=== PATIENT | male | born 1935 | race Caucasian/White ===

== ENCOUNTER 2019-07-24 12:49 | Inpatient (IN) ==
--- NOTE | 2019-07-24 13:05 | Emergency Department Note ---
History of Present Illness General Chief complaint: Dizziness Stated complaint: DIZZY/ABD PAIN/COUGH Time Seen by Provider: 07/24/19 12:50 Source: patient, RN notes reviewed and old records reviewed Mode of arrival: ambulatory History of Present Illness Provider complaint: dizziness Onset (ago): day(s) 3 Location: head Radiation: non-radiation Severity: moderate Current Pain Intensity: 0 Associated symptoms: + denies other symptoms This is an 84-year-old male who presents the emergency department complaining of dizziness. The patient reports a history of walking and becoming dizzy and needing to sit down. The patient also reports he is on a beta-gladys which she has been taking for the past 2 days however he does not take religiously. He has also been taking Flomax. He reports that the dizziness does not get worse with movement of his head. He denies any other symptoms including nausea vomiting. Home Medications Home Medications Medication Instructions Recorded Confirmed Type acetaminophen [Tylenol Extra 1,000 mg PO QAM 07/24/19 07/24/19 History Strength] amlodipine 5 mg PO DAILY 07/24/19 07/24/19 History finasteride 5 mg PO QPM 07/24/19 07/24/19 History tadalafil 5 mg PO QAM 07/24/19 07/24/19 History tamsulosin 0.4 mg PO HS 07/24/19 07/24/19 History Allergies Allergy/AdvReac Type Severity Reaction Status Date / Time No Known Allergies Allergy . Unverified 07/24/19 14:42 Past Med/Surg History Medical History BPH (benign prostatic hyperplasia) Dyslipidemia HTN (hypertension) Surgical History H/O vasectomy History of cataract surgery Hx of tonsillectomy Family History Mother Stroke Social History Preferred Language: [place] Feels Safe at Home: Yes Smoking Status: Former smoker Hx Alcohol Use: Yes (1 glass wine a day) Hx Substance Use: No Review of Systems A total of 10 systems reviewed and were otherwise negative Physical Exam Vital Signs Vital Signs - 24 hr 07/24/19 12:52 07/24/19 12:53 07/24/19 12:55 Temperature 36.8 C Temperature Source Oral Pulse Rate - Lying Pulse Rate - Sitting Pulse Rate - Standing Pulse Rate 63 59 L Pulse Rate from SpO2 Sensor 61 Pulse Rhythm Irregular Pulse Strength Normal Respiratory Rate 21 20 Respiratory Effort / Characteristics Non-Labored Spontaneous Respiratory Depth Normal Respiratory Pattern Regular Blood Pressure - Lying Blood Pressure - Sitting Blood Pressure- Standing Blood Pressure 169/102 H 169/102 H Blood Pressure Mean 134 124 Blood Pressure Position Sitting Pulse Oximetry 99 100 99 Oxygen Delivery Method Room Air Room Air Room Air Sepsis Recent Fever Within 48 Hours No Sepsis New/Unexplained Change in Mental Status No Sepsis Action Taken by Nursing No Action Required 07/24/19 12:59 07/24/19 13:00 07/24/19 13:02 Temperature Temperature Source Pulse Rate - Lying Pulse Rate - Sitting Pulse Rate - Standing Pulse Rate 67 55 L 55 L Pulse Rate from SpO2 Sensor 68 57 L 54 L Pulse Rhythm Pulse Strength Respiratory Rate 17 20 14 Respiratory Effort / Characteristics Respiratory Depth Respiratory Pattern Blood Pressure - Lying Blood Pressure - Sitting Blood Pressure- Standing Blood Pressure 140/61 Blood Pressure Mean 72 Blood Pressure Position Pulse Oximetry 99 99 99 Oxygen Delivery Method Room Air Room Air Room Air Sepsis Recent Fever Within 48 Hours Sepsis New/Unexplained Change in Mental Status Sepsis Action Taken by Nursing 07/24/19 13:03 07/24/19 13:04 07/24/19 13:56 Temperature Temperature Source Pulse Rate - Lying 53 L Pulse Rate - Sitting 54 L Pulse Rate - Standing 66 Pulse Rate 56 L 59 L 94 H Pulse Rate from SpO2 Sensor 56 L 57 L Pulse Rhythm Pulse Strength Respiratory Rate 21 17 25 H Respiratory Effort / Characteristics Respiratory Depth Respiratory Pattern Blood Pressure - Lying 140/61 Blood Pressure - Sitting 136/69 Blood Pressure- Standing 130/62 Blood Pressure 136/69 130/62 Blood Pressure Mean 83 80 Blood Pressure Position Pulse Oximetry 97 98 Oxygen Delivery Method Room Air Room Air Sepsis Recent Fever Within 48 Hours Sepsis New/Unexplained Change in Mental Status Sepsis Action Taken by Nursing 07/24/19 14:00 07/24/19 14:19 07/24/19 14:30 Temperature Temperature Source Pulse Rate - Lying Pulse Rate - Sitting Pulse Rate - Standing Pulse Rate 59 L 62 66 Pulse Rate from SpO2 Sensor 56 L 56 L 62 Pulse Rhythm Pulse Strength Respiratory Rate 19 14 14 Respiratory Effort / Characteristics Respiratory Depth Respiratory Pattern Blood Pressure - Lying Blood Pressure - Sitting Blood Pressure- Standing Blood Pressure 167/78 H 169/98 H Blood Pressure Mean 125 110 Blood Pressure Position Pulse Oximetry 98 98 99 Oxygen Delivery Method Room Air Room Air Room Air Sepsis Recent Fever Within 48 Hours Sepsis New/Unexplained Change in Mental Status Sepsis Action Taken by Nursing 07/24/19 15:00 07/24/19 15:31 Temperature Temperature Source Pulse Rate - Lying Pulse Rate - Sitting Pulse Rate - Standing Pulse Rate 55 L 58 L Pulse Rate from SpO2 Sensor 56 L 59 L Pulse Rhythm Pulse Strength Respiratory Rate 13 20 Respiratory Effort / Characteristics Respiratory Depth Respiratory Pattern Blood Pressure - Lying Blood Pressure - Sitting Blood Pressure- Standing Blood Pressure 189/86 H 175/98 H Blood Pressure Mean 105 123 Blood Pressure Position Pulse Oximetry 98 98 Oxygen Delivery Method Room Air Room Air Sepsis Recent Fever Within 48 Hours Sepsis New/Unexplained Change in Mental Status Sepsis Action Taken by Nursing GENERAL: Patient is a healthy-appearing well-nourished male HEAD: Normocephalic atraumatic EYES: Ocular movements intact pupils equal and react to light OROPHARYNX mucous membranes are moist no exudates present no erythema or edema present NECK: Supple no nuchal rigidity CHEST: Good equal expansion LUNGS: Clear and equal to auscultation CARDIAC: Normal S1 and S2 ABDOMEN: Soft nontender no guarding BACK: No CVA tenderness EXTREMITIES: No pain upon palpation normal muscle strength in all groups no clubbing cyanosis or edema NEURO: Patient is following commands is answering questions appropriately. Alert and oriented x3 Cranial Nerves 2-12 grossly intact Course Administered Medications Ioversol (Optiray 320 125ml) 120 ml IV ONCE PRN PRN Reason: Interaction Checking Stop: 07/28/19 13:45 Last Admin: 07/24/19 13:47 Dose: 120 ml Documented by: [id number] Discontinued Medications Sodium Chloride (Nss 1000ml) 1,000 mls @ 999 mls/hr IV .Q1H1M EVER Stop: 07/24/19 14:15 Last Infusion: 07/24/19 14:17 Dose: 0 mls/hr Documented by: [id number] Admin: 07/24/19 13:16 Dose: 999 mls/hr Documented by: [id number] Medical Decision Making Differential Diagnosis Benign positional vertigo, dehydration, hypovolemia, anemia, tumor, infection, hypoglycemia, electrolyte abnormalities, cardiac sources, intracerebral event, toxicologic, neurologic, as well as other pathologies. Medical Records Attestation: I reviewed the patient's medical records. Home Medications Current Medication List: was personally reviewed by me Laboratory Data Attestation: I reviewed the patient's lab results. Result diagrams: 07/24/19 13:12 07/24/19 13:12 Lab Results 07/24/19 07/24/19 07/24/19 Range/Units 13:12 13:12 13:21 WBC 6.06 (4.8-10.8) K/uL RBC 3.75 L (4.7-6.1) M/uL Hgb 12.1 L (14.0-18.0) g/dL POC Hgb 11.2 L (14.0-18.0) g/dl Hct 35.9 L (42-52) % POC Hct 33 L (42-52) % MCV 95.7 (80-100) fL MCH 32.3 (25-34) pg MCHC 33.7 (32-36) g/dL RDW Std Deviation 46.5 H (36.4-46.3) fL RDW Coeff of Shivani 13.3 (11.5-14.5) % Plt Count 218 (130-400) K/uL MPV 9.9 (7.4-10.4) fL Immature Gran % (Auto) 0.2 % Neut % (Auto) 47.1 % Lymph % (Auto) 38.3 % Woodruff % (Auto) 9.1 % Eos % (Auto) 4.8 % Baso % (Auto) 0.5 % Immature Gran # (Auto) 0.01 (0.00-0.02) K/uL Neut # (Auto) 2.86 (1.4-6.5) K/uL Lymph # (Auto) 2.32 (1.2-3.4) K/uL [place]ruff # (Auto) 0.55 (0.11-0.59) K/uL Eos # (Auto) 0.29 (0-0.5) K/uL Baso # (Auto) 0.03 (0-0.2) K/uL POC Sodium 139 (135-144) mmol/L Sodium 139 (136-145) mmol/L POC Potassium 3.8 (3.3-5.0) mmol/L Potassium 3.7 (3.5-5.1) mmol/L POC Chloride 102 (101-112) mmol/L Chloride 107 (98-107) mmol/L Carbon Dioxide 27 (21-32) mmol/L POC Total CO2 26 (24-31) mEq/l Anion Gap 5.0 (3-11) POC Anion Gap 16.0 (16-25) mmol/L POC BUN 15 (7-18) mg/dl BUN 16 (7-18) mg/dl Creatinine 0.99 (0.6-1.4) mg/dl POC Creatinine 1.0 (0.6-1.3) mg/dl Est Cr Clr Drug Dosing 60.2 ml/min Est GFR ( Amer) 81.3 Est GFR (Non-Af Amer) 70.1 BUN/Creatinine Ratio 16.0 (10-20) Glucose 104 H (70-99) mg/dl POC Glucose (other) 106 H (70-99) mg/dl Calcium 8.8 (8.5-10.1) mg/dl POC Ioniz Calcium Brie 1.18 (1.12-1.32) mmol/l Total Bilirubin 0.3 (0.2-1) mg/dl AST 13 L (15-37) U/L ALT 17 (12-78) U/L Alkaline Phosphatase 74 (45-117) U/L Total Creatine Kinase 71 (39-308) U/L Troponin I < 0.015 (0-0.045) ng/ml Total Protein 6.4 (6.4-8.2) gm/dl Albumin 3.4 (3.4-5.0) gm/dl Globulin 3.0 (2.5-4.0) gm/dl Albumin/Globulin Ratio 1.1 (0.9-2) TSH 1.660 (0.300-4.500) uIu/ml Urine Color Urine Appearance (Clear) Urine pH (4.5-7.5) Ur Specific [place] (1.000-1.030) Urine Protein (Negative) Urine Glucose (UA) (Negative) Urine Ketones (Negative) Urine Blood (Negative) Urine Nitrite (Negative) Urine Bilirubin (Negative) Urine Urobilinogen (Negative) Ur Leukocyte Esterase (Negative) Urine WBC (Auto) (0-5) /hpf Urine RBC (Auto) (0-4) /hpf U Hyaline Cast (Auto) (0-5) /lpf U Epithel Cells (Auto) (0-5) /lpf Urine Bacteria (Auto) (Negative) 07/24/19 Range/Units 14:30 WBC (4.8-10.8) K/uL RBC (4.7-6.1) M/uL Hgb (14.0-18.0) g/dL POC Hgb (14.0-18.0) g/dl Hct (42-52) % POC Hct (42-52) % MCV (80-100) fL MCH (25-34) pg MCHC (32-36) g/dL RDW Std Deviation (36.4-46.3) fL RDW Coeff of Shivani (11.5-14.5) % Plt Count (130-400) K/uL MPV (7.4-10.4) fL Immature Gran % (Auto) % Neut % (Auto) % Lymph % (Auto) % Woodruff % (Auto) % Eos % (Auto) % Baso % (Auto) % Immature Gran # (Auto) (0.00-0.02) K/uL Neut # (Auto) (1.4-6.5) K/uL Lymph # (Auto) (1.2-3.4) K/uL [place] # (Auto) (0.11-0.59) K/uL Eos # (Auto) (0-0.5) K/uL Baso # (Auto) (0-0.2) K/uL POC Sodium (135-144) mmol/L Sodium (136-145) mmol/L POC Potassium (3.3-5.0) mmol/L Potassium (3.5-5.1) mmol/L POC Chloride (101-112) mmol/L Chloride (98-107) mmol/L Carbon Dioxide (21-32) mmol/L POC Total CO2 (24-31) mEq/l Anion Gap (3-11) POC Anion Gap (16-25) mmol/L POC BUN (7-18) mg/dl BUN (7-18) mg/dl Creatinine (0.6-1.4) mg/dl POC Creatinine (0.6-1.3) mg/dl Est Cr Clr Drug Dosing ml/min Est GFR ( Amer) Est GFR (Non-Af Amer) BUN/Creatinine Ratio (10-20) Glucose (70-99) mg/dl POC Glucose (other) (70-99) mg/dl Calcium (8.5-10.1) mg/dl POC Ioniz Calcium Brie (1.12-1.32) mmol/l Total Bilirubin (0.2-1) mg/dl AST (15-37) U/L ALT (12-78) U/L Alkaline Phosphatase (45-117) U/L Total Creatine Kinase (39-308) U/L Troponin I (0-0.045) ng/ml Total Protein (6.4-8.2) gm/dl Albumin (3.4-5.0) gm/dl Globulin (2.5-4.0) gm/dl Albumin/Globulin Ratio (0.9-2) TSH (0.300-4.500) uIu/ml Urine Color Yellow Urine Appearance Clear (Clear) Urine pH 7.5 (4.5-7.5) Ur Specific [place] 1.016 (1.000-1.030) Urine Protein Negative (Negative) Urine Glucose (UA) Negative (Negative) Urine Ketones Negative (Negative) Urine Blood Negative (Negative) Urine Nitrite Negative (Negative) Urine Bilirubin Negative (Negative) Urine Urobilinogen Negative (Negative) Ur Leukocyte Esterase Trace H (Negative) Urine WBC (Auto) 1-5 (0-5) /hpf Urine RBC (Auto) 0-4 (0-4) /hpf U Hyaline Cast (Auto) 0 (0-5) /lpf U Epithel Cells (Auto) 0-5 (0-5) /lpf Urine Bacteria (Auto) Negative (Negative) Imaging Data Radiologist's Impression: XRay Report Patient: EVANS GALE Admit Date: 07/24/19 MR#: [id number] Address1: [address] [place] [address] Acct ID:[id number] Address2: Date: 1935 [facility] Zip: [place] [address] Age: 84 Location: ED Sex: M Room/Bed: Att Phy: Diagnosis: DIZZY/ABD PAIN/COUGH Ro Phy: Jay Chamberlain DO Service Date: 07/24/19 Fam Phy: Interpreting Phy: Shivam Lemus MD Admit Phy: Ordering Phy: Ward Valdovinos MD cc: ~ XR chest 1V portable CLINICAL HISTORY: weakness COMPARISON STUDY: Chest radiograph and chest CT November 26, 2013. FINDINGS: Lung volumes are normal. Lungs are clear. There is no pneumothorax or pleural effusion. Mild to moderate cardiomegaly is noted. Mediastinal contours are normal. There is no evidence for pulmonary edema. IMPRESSION: 1. No acute cardiopulmonary findings. 2. Mild to moderate cardiomegaly. ACT 112: Negative or not required by law. Electronically signed by: Shivam Lemus M.D. 07/24/2019 2:18 PM Dictated: 07/24/19 1416 Transcribed: 07/24/19 1416 [place], [place] [phone] CT Scan Report Patient: EVANS GALE Admit Date: 07/24/19 MR#: [id number] Address1: [address] [place] [address] Acct ID:[id number] Address2: Date: 1935 [facility] Zip: [place] [address] Age: 84 Location: ED Sex: M Room/Bed: Att Phy: Diagnosis: DIZZY/ABD PAIN/COUGH Ro Phy: Jay Chamberlain DO Service Date: 07/24/19 Fam Phy: Interpreting Phy: Jonnathan Patrick MD Admit Phy: Ordering Phy: Ward Valdovinos MD cc: ~ CT angio head wo/w CLINICAL HISTORY: 84 years-old Male presenting with Pt c/o dizziness. TECHNIQUE: Multidetector CT angiography of the head was performed before and after the administration of intravenous contrast. 3-D volumetric and/or maximum intensity projection (MIP) images were subsequently reconstructed for review. IV contrast: 120 mL of Optiray 320. One or more dose lowering techniques were used consistent with the principles of ALARA (as low as reasonably achievable), including automatic exposure control, mA or kV adjustment to individual patient size, and/or use of iterative reconstruction. COMPARISON: Noncontrast CT head from 04/10/2009. CT DOSE (mGy.cm): The estimated cumulative dose is 1220.04 mGy.cm. 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 CT HEAD: Proportional ventricular and sulcal prominence, likely age-related parenchymal volume loss. No hemorrhage. Brain parenchyma normal in appearance with preserved price-white differentiation. No acute territorial infarct. No mass effect or midline shift. No extra-axial fluid collection. Paranasal sinuses and mastoid air cells clear. Calvarium intact. CTA HEAD: Anterior circulation: Atherosclerosis of the cavernous segments of the internal carotid arteries (ICA). Atherosclerotic plaque results in mild luminal stenosis of the paraclinoid right ICA. Intracranial portions of the ICAs otherwise patent to the level of the termini. 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 A2 segment of the right KATHY and left KATHY patent. Mild atherosclerotic narrowing of the M2 segments of the right middle cerebral artery (MCA). Left MCA patent. Anterior communicating artery patent. Posterior circulation: Right dominant vertebral artery. Intradural portions of the vertebral arteries patent. Posterior inferior cerebellar arteries patent. Basilar artery patent. Anterior inferior cerebellar arteries poorly visualized. Superior cerebellar arteries patent. Right posterior cerebral artery (SIZE TESTER) in the T1 and T2 segments with mild multifocal stenoses likely atherosclerotic in etiology. Left SIZE TESTER patent. Left posterior communicating artery (P-comm) patent. Right P-comm hypoplastic or aplastic. Dural venous sinuses: Patent. Other: Allowing for the phase of contrast, brain parenchyma within normal limits. Calvarium intact. IMPRESSION: 1. No acute intracranial abnormality. 2. Atherosclerosis results in mild (less than 25%) stenoses in the paraclinoid right ICA, A2 segments of the right MCA, and right SIZE TESTER. Otherwise no evidence of aneurysm, focal vessel occlusion, or significant stenosis of the intracranial arteries. ACT 112: Negative or not required by law. Electronically signed by: Jonnathan Patrick M.D. 07/24/2019 2:11 PM Dictated: 07/24/19 1402 Transcribed: 07/24/19 1402 [place], [place] [phone] CT Scan Report Patient: EVANS GALE Admit Date: 07/24/19 MR#: [id number] Address1: [address] [place] [address] Acct ID:[id number] Address2: Date: 1935 [facility] Zip: [place] [address] Age: 84 Location: ED Sex: M Room/Bed: Att Phy: Diagnosis: DIZZY/ABD PAIN/COUGH Ro Phy: Jay Chamberlain DO Service Date: 07/24/19 Fam Phy: Interpreting Phy: Jonnathan Patrick MD Admit Phy: Ordering Phy: Ward Valdovinos MD cc: ~ CT angio neck with con CLINICAL HISTORY: 84 years-old Male presenting with Pt c/o dizziness. TECHNIQUE: Multidetector CT angiography of the neck was performed after the administration of intravenous contrast. 3-D volumetric and/or maximum intensity projection (MIP) images were subsequently reconstructed for review. IV contrast: 120 mL of Optiray 320. One or more dose lowering techniques were used consistent with the principles of ALARA (as low as reasonably achievable), including automatic exposure control, mA or kV adjustment to individual patient size, and/or use of iterative reconstruction. Stenosis measurements were based on NASCET-like criteria (distal lumen diameter as the denominator for stenosis measurement). COMPARISON: None. CT DOSE (mGy.cm): The estimated cumulative dose is 1220.04. 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 Aortic arch: Atherosclerosis of the three-vessel aortic arch with patent origins of the branch vessels. Innominate artery: Patent. Right subclavian artery: Patent. Right common carotid artery: Patent. Right internal and external carotid arteries: Anomaly noncalcified atherosclerotic plaque at the carotid bifurcation results in less than 50% stenosis of the origin of the right internal carotid artery (ICA) and less than 25% stenosis as well as luminal irregularity of the proximal ICA. ECA patent. Left common carotid artery: Patent. Left internal and external carotid arteries: Mild or calcified and noncalcified atherosclerotic plaque at the carotid bifurcation results in less than 25% stenosis of the origin of the left ICA and proximal ICA course. ECA patent. Focal 50-75% stenosis within the horizontal portion of the petrous segment of the left ICA (series 6 image 363). Left subclavian artery: Mild noncalcified atherosclerotic plaque without significant stenosis. Vertebral arteries: Right dominant vertebral artery. The origin of the left vertebral artery is not well delineated though grossly patent. There is luminal irregularity of the left vertebral artery with intermittent stenoses and dilatation. Nonopacification of the left vertebral artery at the level of C1- skull base until the intradural portion at the level of the takeoff of the left posterior inferior cerebellar artery, possibly reconstituted by retrograde flow. Other: Soft tissues of the neck normal allowing for the phase of contrast. Degenerative changes of the cervical spine. Lung apices clear. IMPRESSION: 1. Nonopacification of the left vertebral artery at the level of C1-skull base with reconstitution at the level of the takeoff of the left PICA. This is concerning for occlusion possibly atherosclerotic in etiology or less likely due to dissection. This may be acute or chronic. 2. Stenoses of the origins and proximal courses of the internal carotid arteries, right greater than left, less than 50% luminal stenosis. 3. More significant 50-75% stenosis focally within the horizontal portion of the petrous segment of the left ICA. This is also atherosclerotic in etiology. The report will be called/faxed according to standard departmental protocol. ACT 112: Negative or not required by law. Electronically signed by: Jonnathan Patrick M.D. 07/24/2019 2:20 PM Dictated: 07/24/191410 Transcribed: 07/24/191410 ECG Data Attestation: I personally reviewed and interpreted this ECG as follows: Indication: + other (dizziness) Rate (beats per minute): 58 Rhythm: + sinus bradycardia ECG Intervals/blocks: + First degree AV block and + Normal QT-c (445) ECG [place]: + Normal ECG ST segments: no ST depression and no ST elevation Comparison ECG Date: from (11/26/2013) Change: no significant change MDM Narrative This is an 84-year-old male who presents emergency department complaining of dizziness when walking. Using shared medical decision making with the patient he was sent for CTA of the head and neck. CTA of the neck is concerning for an occlusion of the vertebral artery. Based on this I did discuss the case with both neurology as well as the hospitalist service. The patient does appear to be orthostatic as well he was also given a normal saline bolus here in the emergency department. He does not have an elevation in his troponin his EKG is unchanged. He is not anemic. Impression & Plan Dizziness, HTN (hypertension), Gait disturbance Discharge Plan Visit Data Chief Complaint: Dizziness Stated Complaint: DIZZY/ABD PAIN/COUGH ED Provider: Ward Valdovinos Discharge Problem: Dizziness, HTN (hypertension), Gait disturbance Forms Stand Alone Forms: My [facility] SED Web Prescriptions Prescriptions: No Action acetaminophen [Tylenol Extra Strength] 500 mg Tablet 1,000 mg PO QAM RF: 0 tamsulosin 0.4 mg Capsule 0.4 mg PO HS RF: 0 finasteride 5 mg Tablet 5 mg PO QPM RF: 0 tadalafil 5 mg Tablet 5 mg PO QAM RF: 0 amlodipine 5 mg Tablet 5 mg PO DAILY RF: 0 Discharge Problem: HTN (hypertension) Qualifiers: Hypertension type: unspecified Qualified Code(s): I10 - Essential (primary) hypertension
[2019-07-24] MEDS ORDERED: SODIUM CHLORIDE 0.9% 1000ML 1,000 ML IV SCH (13:15)
[2019-07-24 13:30] LABS: Basophils # (auto) 0.03 K/uL (0-0.2); Basophils % (auto) 0.5 %; Eosinophils # (auto) 0.29 K/uL (0-0.5); Eosinophils % (auto) 4.8 %; Hematocrit (blood only) 35.9 % (42-52); Hemoglobin 12.1 g/dL (14.0-18.0); Immature Granulocytes # (auto) 0.01 K/uL (0.00-0.02); Immature Granulocytes % (auto) 0.2 %; Lymphocytes # (auto) 2.32 K/uL (1.2-3.4); Lymphocytes % (auto) 38.3 %; Mean Corpuscular Hemoglobin 32.3 pg (25-34); Mean Corpuscular Hgb Conc 33.7 g/dL (32-36); Mean Corpuscular Volume 95.7 fL (80-100); Mean Platelet Volume 9.9 fL (7.4-10.4); Monocytes # (auto) 0.55 K/uL (0.11-0.59); Monocytes % (auto) 9.1 %; Neutrophils # (auto) 2.86 K/uL (1.4-6.5); Neutrophils % (auto) 47.1 %; Platelet Count 218 K/uL (130-400); RDW Coefficient of Variation 13.3 % (11.5-14.5); RDW Standard Deviation 46.5 fL (36.4-46.3); Red Blood Count 3.75 M/uL (4.7-6.1); White Blood Count 6.06 K/uL (4.8-10.8)
[2019-07-24 13:33] LABS: iSTAT Hemoglobin 11.2 g/dl (14.0-18.0); iSTAT Ionized Calcium 1.18 mmol/l (1.12-1.32); iSTAT Potassium 3.8 mmol/L (3.3-5.0)
[2019-07-24 13:46] LABS: Alanine Aminotransferase 17 U/L (12-78); Albumin Level 3.4 gm/dl (3.4-5.0); Aspartate Aminotransferase 13 U/L (15-37); Blood Urea Nitrogen 16 mg/dl (7-18); Calcium 8.8 mg/dl (8.5-10.1); Carbon Dioxide 27 mmol/L (21-32); Chloride 107 mmol/L (98-107); Creatinine Clr Calc Pharmacy 60.2 ml/min; Est GFR (African American) 81.3; Est GFR (Non-African American) 70.1; Glucose 104 mg/dl (70-99); Potassium 3.7 mmol/L (3.5-5.1); Sodium 139 mmol/L (136-145)
[2019-07-24] MEDS ORDERED: OPTIRAY 320 125ml IV PRN (13:46)
[2019-07-24 13:57] LABS: Albumin Globulin Ratio 1.1 (0.9-2); Alkaline Phosphatase 74 U/L (45-117); Bilirubin,Total 0.3 mg/dl (0.2-1); Creatine Kinase 71 U/L (39-308); Total Protein 6.4 gm/dl (6.4-8.2); Troponin I < 0.015 ng/ml (0-0.045)
--- NOTE | 2019-07-24 14:13 | CT Scan Report ---
CT angio head wo/w CLINICAL HISTORY: 84 years-old Male presenting with Pt c/o dizziness. TECHNIQUE: Multidetector CT angiography of the head was performed before and after the administration of intravenous contrast. 3-D volumetric and/or maximum intensity projection (MIP) images were subseq uently reconstructed for review. IV contrast: 120 mL of Optiray 320. One or more dose lowering techni ques were used consistent with the principles of ALARA (as low as reasonably achievable), including a utomatic exposure control, mA or kV adjustment to individual patient size, and/or use of iterative re construction. COMPARISON: Noncontrast CT head from 04/10/2009. CT DOSE (mGy.cm): The estimated cumulative dose is 1220.04 mGy.cm. FINDINGS: Porcelain Finisher topogram: Unremarkable. CT HEAD: Proportional ventricular and sulcal prominence, likely age-related parenchymal volume loss. No hemorr amber. Brain parenchyma normal in appearance with preserved price-white differentiation. No acute rachelle torial infarct. No mass effect or midline shift. No extra-axial fluid collection. Paranasal sinuses a nd mastoid air cells clear. Calvarium intact. CTA HEAD: Anterior circulation: Atherosclerosis of the cavernous segments of the internal carotid arteries (ICA ). Atherosclerotic plaque results in mild luminal stenosis of the paraclinoid right ICA. Intracranial portions of the ICAs otherwise patent to the level of the termini. Hypoplasia of the A1 segment of t he right anterior cerebral artery (KATHY). A2 segment of the right KATHY and left KATHY patent. Mild athero sclerotic narrowing of the M2 segments of the right middle cerebral artery (MCA). Left MCA patent. An terior communicating artery patent. Posterior circulation: Right dominant vertebral artery. Intradural portions of the vertebral arteries patent. Posterior inferior cerebellar arteries patent. Basilar artery patent. Anterior inferior cere bellar arteries poorly visualized. Superior cerebellar arteries patent. Right posterior cerebral loni ry (SUPER[employer]LE[employer]SWERING SERVICE) in the T1 and T2 segments with mild multifocal stenoses likely atherosclerotic in etiology. Left SU[employer]ICE patent. Left posterior communicating artery (P-comm) patent. Right P-comm hypoplastic or apl astic. Dural venous sinuses: Patent. Other: Allowing for the phase of contrast, brain parenchyma within normal limits. Calvarium intact. IMPRESSION: 1. No acute intracranial abnormality. 2. Atherosclerosis results in mild (less than 25%) stenoses in the paraclinoid right ICA, A2 segment s of the right MCA, and right SU[employer]ERING [employer]ICE. Otherwise no evidence of aneurysm, focal vessel occlusion, or sign ificant stenosis of the intracranial arteries. ACT 112: Negative or not required by law. Electronically signed by: Jonnathan Patrick M.D. 07/24/2019 2:11 PM
--- NOTE | 2019-07-24 14:19 | XRay Report ---
XR chest 1V portable CLINICAL HISTORY: weakness COMPARISON STUDY: Chest radiograph and chest CT November 26, 2013. FINDINGS: Lung volumes are normal. Lungs are clear. There is no pneumothorax or pleural effusion. Mil d to moderate cardiomegaly is noted. Mediastinal contours are normal. There is no evidence for pulmon santi edema. IMPRESSION: 1. No acute cardiopulmonary findings. 2. Mild to moderate cardiomegaly. ACT 112: Negative or not required by law. Electronically signed by: Shivam Lemus M.D. 07/24/2019 2:18 PM
--- NOTE | 2019-07-24 14:22 | CT Scan Report ---
CT angio neck with con CLINICAL HISTORY: 84 years-old Male presenting with Pt c/o dizziness. TECHNIQUE: Multidetector CT angiography of the neck was performed after the administration of intrave nous contrast. 3-D volumetric and/or maximum intensity projection (MIP) images were subsequently david nstructed for review. IV contrast: 120 mL of Optiray 320. One or more dose lowering techniques were u sed consistent with the principles of ALARA (as low as reasonably achievable), including automatic ex posure control, mA or kV adjustment to individual patient size, and/or use of iterative reconstructio n. Stenosis measurements were based on NASCET-like criteria (distal lumen diameter as the denominator for stenosis measurement). COMPARISON: None. CT DOSE (mGy.cm): The estimated cumulative dose is 1220.04. 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 Aortic arch: Atherosclerosis of the three-vessel aortic arch with patent origins of the branch vessel s. Innominate artery: Patent. Right subclavian artery: Patent. Right common carotid artery: Patent. Right internal and external carotid arteries: Anomaly noncalcified atherosclerotic plaque at the saeed tid bifurcation results in less than 50% stenosis of the origin of the right internal carotid artery (ICA) and less than 25% stenosis as well as luminal irregularity of the proximal ICA. ECA patent. Left common carotid artery: Patent. Left internal and external carotid arteries: Mild or calcified and noncalcified atherosclerotic plaqu e at the carotid bifurcation results in less than 25% stenosis of the origin of the left ICA and prox imal ICA course. ECA patent. Focal 50-75% stenosis within the horizontal portion of the petrous segme nt of the left ICA (series 6 image 363). Left subclavian artery: Mild noncalcified atherosclerotic plaque without significant stenosis. Vertebral arteries: Right dominant vertebral artery. The origin of the left vertebral artery is not w ell delineated though grossly patent. There is luminal irregularity of the left vertebral artery with intermittent stenoses and dilatation. Nonopacification of the left vertebral artery at the level of C1-skull base until the intradural portion at the level of the takeoff of the left posterior inferior cerebellar artery, possibly reconstituted by retrograde flow. Other: Soft tissues of the neck normal allowing for the phase of contrast. Degenerative changes of th e cervical spine. Lung apices clear. IMPRESSION: 1. Nonopacification of the left vertebral artery at the level of C1-skull base with reconstitution a t the level of the takeoff of the left PICA. This is concerning for occlusion possibly atheroscleroti c in etiology or less likely due to dissection. This may be acute or chronic. 2. Stenoses of the origins and proximal courses of the internal carotid arteries, right greater than left, less than 50% luminal stenosis. 3. More significant 50-75% stenosis focally within the horizontal portion of the petrous segment of the left ICA. This is also atherosclerotic in etiology. The report will be called/faxed according to standard departmental protocol. ACT 112: Negative or not required by law. Electronically signed by: Jonnathan Patrick M.D. 07/24/2019 2:20 PM
[2019-07-24 14:59] LABS: Appearance Urine Clear (Clear); Bacteria Urine Automated Negative (Negative); Bilirubin Urine Negative (Negative); Blood Urine Negative (Negative); Cast Urine Automated 0 /lpf (0-5); Color Urine Yellow; Epithelial Cell Urine Auto 0-5 /lpf (0-5); Glucose Urine UA Negative (Negative); Ketones Urine Negative (Negative); Leukocyte Esterase Urine Trace (Negative); Nitrite Urine Negative (Negative); Protein Urine Negative (Negative); RBC Urine Automated 0-4 /hpf (0-4); Specific Gravity Urine 1.016 (1.000-1.030); Urobilinogen Urine Negative (Negative); pH Urine 7.5 (4.5-7.5)
--- NOTE | 2019-07-24 15:32 | Electrocardiogram Report ---
Test Reason : Blood Pressure : / mmHG Vent. Rate : 058 BPM Atrial Rate : 058 BPM P-R Int : 224 ms QRS Dur : 088 ms QT Int : 436 ms P-R-T Axes : 079 -21 035 degrees QTc Int : 428 ms Sinus bradycardia with sinus arrhythmia with 1st degree A-V block Otherwise normal ECG When compared with ECG of 26-NOV-2013 16:13, No significant change was found Confirmed by Devon Fraga ([id number]) on 07/24/2019 3:32:14 PM Referred By: SELF Confirmed By:Dharmesh Fraga
--- NOTE | 2019-07-24 15:56 | History & Physical Report ---
Date of Service July 24, 2019 Assessment & Plan (1) Dizziness: (2) Gait disturbance: Left vertebral artery occlusion Pt is 84 y/o M with PMH HTN, dyslipidemia, BPH presented to ER with c/o dizziness and imbalance with walking x couple of days. yesterday noticed blurry vision with doing puzzle. Denies falls or syncope, extremity weakness or parasthesias In ER afebrile, P: 59, R: 20, BP: 169/102 down to 167/78, 99% on RA. H/H: 12/35, no significant electrolyte abnormality, TSH: 1.6, UA unremarkable CTA HEAD: 1. No acute intracranial abnormality. 2. 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 Otherwise no evidence of aneurysm, focal vessel occlusion, or significant stenosis of the intracranial arteries. CTA NECK: 1. Nonopacification of the left vertebral artery at the level of C1-skull base with reconstitution at the level of the takeoff of the left PICA. This is concerning for occlusion possibly atherosclerotic in etiology or less likely due to dissection. This may be acute or chronic. 2. Stenoses of the origins and proximal courses of the internal carotid arteries, right greater than left, less than 50% luminal stenosis. 3. More significant 50-75% stenosis focally within the horizontal portion of the petrous segment of the left ICA. This is also atherosclerotic in etiology. R/O Stroke. DDX: vertigo -Tele to monitor for arrhythmias -lipid and A1c in am -MRI brain pending -If MRI brain shows infarct will add echo -aspiration precautions -PT/OT consult -Add atorvastatin and aspirin -neurology consult, Dr Banegas contacted and recommends MRI brain, does not recommend vascular consult at this time (3) HTN (hypertension): -Continue amlodipine (4) Dyslipidemia: Nonfasting lipid panel 05/21/2019: Total cholesterol: 212, HDL: 62, LDL: 130, triglycerides: 102 Not on medication (5) BPH (benign prostatic hyperplasia): -Continue tamsulosin, finasteride, tadalafil DVT Prophylaxis -Lovenox SQ Full Code as per discussion with pt, however reports would not want on prolonged life support if poor prognosis Follows with Dr Chamberlain for routine care Pt was seen and care coordinated with Dr Judy. See addendum History of Present Illness Chief Complaint: Dizziness Primary Care Provider: Jay Chamberlain DO Pt is 84 y/o M with PMH HTN, dyslipidemia, BPH presented to ER with c/o di pengziness x couple of days. Patient reports couple days ago walks 2 miles and and returned home had episode of dizziness and feeling off balance with standing. Patient reports this has continued with feeling off balance and dizzy with standing and walking. Patient denies any falls or syncope. States yesterday noticed had some blurry vision while doing a puzzle and had to use his reading glasses. States this morning had right-sided headache when he felt dizzy with walking. Patient states last week had mild cough, denies shortness of breath, fever, chills. Denies diaphoresis, N/V/D/C, neck pain, CP, SOB, orthopnea, palpitations, sore throat, choking, otalgia, rhinorrhea, abdominal pain, paresthesias, weakness, extremity weakness, extremity edema, rashes, urinary symptoms. Denies recent travel, known COVID-19 contacts. Allergies Allergy/AdvReac Type Severity Reaction Status Date / Time No Known Allergies Allergy . Unverified 07/24/19 14:42 Home Medications Home Medications Medication Instructions Recorded Confirmed Type acetaminophen [Tylenol Extra 1,000 mg PO QAM 07/24/19 07/24/19 History Strength] amlodipine 5 mg PO DAILY 07/24/19 07/24/19 History finasteride 5 mg PO QPM 07/24/19 07/24/19 History tadalafil 5 mg PO QAM 07/24/19 07/24/19 History tamsulosin 0.4 mg PO HS 07/24/19 07/24/19 History aspirin 81 mg PO QAM #30 tab 07/26/19 Rx atorvastatin 40 mg PO QAM #30 tab 07/26/19 Rx clopidogrel 75 mg PO QAM #30 tab 07/26/19 Rx Past Med/Surg History Medical History BPH (benign prostatic hyperplasia) Dyslipidemia HTN (hypertension) (Acute) Surgical History H/O vasectomy History of cataract surgery Hx of tonsillectomy Family History Mother Stroke Social History Preferred Language: [place] Communication Ability: Effective Beliefs That Will Affect Care: None marital status: Current Living Situation: Alone Feels Safe at Home: Yes Smoking Status: Former smoker Tobacco Type: cigars ; Hx Alcohol Use: Yes Alcohol type: wine Hx Substance Use: No Review of Systems Review of Systems: All systems reviewed & are unremarkable except as noted in HPI & below Physical Exam Physical Exam: General: no distress, WDWN Head: normocephalic, atraumatic Eyes: PERRL, EOM's intact, +horizontal nystagmus, conjunctiva non-injected, anicteric ENT: normal inspection external ears, nose, mucous membranes moist Neck: supple, trachea midline, ROM intact Lungs: clear, no respiratory distress, no wheezing/rhonchi/rales CV: RRR, no murmur, no JVD, no pretibial edema Abd: normal BS, soft, non-tender Ext: no cyanosis, no calf tenderness Neuro: A&O x 3, normal affect, facial sensation is intact and symmetric, face is strong and symmetric, Hearing grossly intact using his hearing aids, no dysarthria, shoulder shrug intact, tongue is midline, normal movement, no fasciculations, muscle tone normal, strength 5/5 upper and lower extremities Skin: warm, dry Results & Data Results & [facility] ([facility]) Vital Signs (Past 12 Hours) Vital Signs Temp Pulse Resp BP Pulse Ox 07/24/19 14:30 66 14 169/98 H 99 07/24/19 14:19 62 14 167/78 H 98 07/24/19 14:00 59 L 19 98 07/24/19 13:56 94 H 25 H 07/24/19 13:04 59 L 17 130/62 98 07/24/19 13:03 56 L 21 136/69 97 07/24/19 13:02 55 L 14 140/61 99 07/24/19 13:00 55 L 20 99 07/24/19 12:59 67 17 99 07/24/19 12:55 36.8 C 59 L 20 169/102 H 99 07/24/19 12:53 100 07/24/19 12:52 63 21 169/102 H 99 Laboratory Results Short CBC 07/24/19 Range/Units 13:12 WBC 6.06 (4.8-10.8) K/uL Hgb 12.1 L (14.0-18.0) g/dL Hct 35.9 L (42-52) % Plt Count 218 (130-400) K/uL BMP 07/24/19 13:12 Sodium 139 Potassium 3.7 Chloride 107 Carbon Dioxide 27 BUN 16 Creatinine 0.99 Glucose 104 H Calcium 8.8 Cardiac Enzymes 07/24/19 Range/Units 13:12 Total Creatine Kinase 71 (39-308) U/L Troponin I < 0.015 (0-0.045) ng/ml Liver Function 07/24/19 Range/Units 13:12 Total Bilirubin 0.3 (0.2-1) mg/dl AST 13 L (15-37) U/L ALT 17 (12-78) U/L Alkaline Phosphatase 74 (45-117) U/L Albumin 3.4 (3.4-5.0) gm/dl Urine 07/24/19 Range/Units 14:30 Urine Color Yellow Urine Appearance Clear (Clear) Urine pH 7.5 (4.5-7.5) Ur Specific [place] 1.016 (1.000-1.030) Urine Protein Negative (Negative) Urine Glucose (UA) Negative (Negative) Diagnostic Findings CXR: IMPRESSION: 1. No acute cardiopulmonary findings. 2. Mild to moderate cardiomegaly. CTA HEAD: IMPRESSION: 1. No acute intracranial abnormality. 2. 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 Otherwise no evidence of aneurysm, focal vessel occlusion, or significant stenosis of the intracranial arteries. CTA NECK: IMPRESSION: 1. Nonopacification of the left vertebral artery at the level of C1-skull base with reconstitution at the level of the takeoff of the left PICA. This is concerning for occlusion possibly atherosclerotic in etiology or less likely due to dissection. This may be acute or chronic. 2. Stenoses of the origins and proximal courses of the internal carotid arteries, right greater than left, less than 50% luminal stenosis. 3. More significant 50-75% stenosis focally within the horizontal portion of the petrous segment of the left ICA. This is also atherosclerotic in etiology. ECG Rate (beats per minute): 58 Rhythm: sinus bradycardia Findings: + 1st degree AV block Code Status & VTE Plan VTE Prophylaxis Plan VTE Prophylaxis will be ordered: Yes Supervising Physician Co-Signing Physician Notes Pt was seen and examined. Agreed with Vicky BURDEN exam, assessment and plan. 84 y/o M with PMH HTN, dyslipidemia, BPH presented to ER with c/o dizziness and unsteady gait. Pt said that about 2 days ago he started to have intermittent dizziness. He said that he had episode while he was sitting reading something then developed vision problem. Denies any slurred speech and weakness. CT head in the ER showed No acute intracranial abnormality. 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 Otherwise no evidence of aneurysm, focal vessel occlusion, or significant stenosis of the intracranial arteries. MRI done showed no acute intracranial abnormality. Neurology consulted. Starting on aspirin and plavix for now. PT/OT eval. Will monitor in tele for any arrhythmia. Fall precaution. MD Judy
--- NOTE | 2019-07-24 16:51 | Magnetic Resonance Report ---
MRI OF THE BRAIN WITHOUT IV CONTRAST CLINICAL HISTORY: Dizziness. COMPARISON STUDY: CT of the brain performed the same day 07/24/2019. TECHNIQUE: MRI of the brain was performed utilizing various T1 and T2-weighted sequences in the axial , sagittal, and coronal planes. IV contrast was not administered for this examination. FINDINGS: Brain parenchyma: There is age-related involutional change noting minimal microangiopathic disease. T here is no hemorrhage or mass effect. There is no restricted diffusion to suggest acute ischemia. Gra y-white matter differentiation is preserved. No extra-axial fluid collection is seen. The cerebellar tonsils are normal in configuration. Ventricles, sulci, and cisterns: Prominent secondary to involutional change. Pituitary and sella: Unremarkable. Intracranial vasculature: Normal flow voids are maintained at the skull base. Orbits: The bony orbits are grossly intact. Orbital contents are normal in appearance noting bilatera l ocular lens implants. Sinuses and mastoids: There is moderate mucosal thickening within the left ethmoid sinuses. Mild muco sarthak thickening is noted in the left frontal sinus. The remaining paranasal sinuses are clear. There i s a right mastoid effusion. Calvarium: Unremarkable. Cervical cord: Partially visualized cervical spinal cord is normal in morphology and signal intensity . IMPRESSION: No acute intracranial abnormality. ACT 112: Negative or not required by law. Electronically signed by: Tu Ortiz M.D. 07/24/2019 4:50 PM
[2019-07-24] MEDS ORDERED: ACETAMINOPHEN 325 MG TAB PO PRN (17:49)
[2019-07-24] MEDS ORDERED: PHARMACIST DISCHARGE MED REC CONSULT PRN (17:49)
[2019-07-24] MEDS ORDERED: ASPIRIN 81 MG ECTAB PO ONE (18:30)
[2019-07-24] MEDS: CLOPIDOGREL BISULFATE 75 MG TAB PO SCH (19:08)
[2019-07-24] MEDS: ENOXAPARIN INJ 40 MG/0.4 ML SYR SQ SCH (19:08)
[2019-07-24] MEDS: FINASTERIDE 5 MG TAB PO SCH (22:05)
[2019-07-24] MEDS: TAMSULOSIN HCL 0.4 MG CAP PO SCH (22:05)
[2019-07-25 06:05] LABS: Hematocrit (blood only) 34.7 % (42-52); Hemoglobin 11.5 g/dL (14.0-18.0); Mean Corpuscular Hemoglobin 31.4 pg (25-34); Mean Corpuscular Hgb Conc 33.1 g/dL (32-36); Mean Corpuscular Volume 94.8 fL (80-100); Mean Platelet Volume 9.9 fL (7.4-10.4); Platelet Count 194 K/uL (130-400); RDW Coefficient of Variation 13.4 % (11.5-14.5); RDW Standard Deviation 46.4 fL (36.4-46.3); Red Blood Count 3.66 M/uL (4.7-6.1); White Blood Count 5.32 K/uL (4.8-10.8)
[2019-07-25 06:51] LABS: BUN Creatinine Ratio 14.6 (10-20); Calcium 8.4 mg/dl (8.5-10.1); Creatinine Clr Calc Pharmacy 55.6 ml/min; Est GFR (African American) 76.6; Est GFR (Non-African American) 66.1; Potassium 3.9 mmol/L (3.5-5.1)
[2019-07-25 07:19] LABS: Estimated Average Glucose 111 mg/dl; Hemoglobin A1C 5.5 % (4.5-5.6)
[2019-07-25] MEDS: ASPIRIN 81 MG ECTAB PO SCH (07:52)
[2019-07-25] MEDS: AMLODIPINE BESYLATE 5 MG TAB PO SCH (07:52)
[2019-07-25] MEDS: ATORVASTATIN 40 MG TAB PO SCH (07:52)
[2019-07-25] MEDS: CLOPIDOGREL BISULFATE 75 MG TAB PO SCH (07:52)
--- NOTE | 2019-07-25 14:05 | Hospitalist Progress Note ---
Date of Service July 25, 2019 Assessment & Plan (1) Dizziness: (2) Gait disturbance: Possible Left Vertebral Artery Occlusion Present on admission with dizziness and unsteady gait CTA HEAD showed no acute intracranial abnormality. 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 CTA NECK showed nonopacification of the left vertebral artery at the level of C1-skull base with reconstitution at the level of the takeoff of the left PICA. This is concerning for occlusion possibly atherosclerotic in etiology or less likely due to dissection. This may be acute or chronic. Stenoses of the origins and proximal courses of the internal carotid arteries, right greater than left, less than 50% luminal stenosis. More significant 50-75% stenosis focally within the horizontal portion of the petrous segment of the left ICA. MRI showed no acute intracranial abnormality Neuro on board Case discussed with Dr. Banegas recommended to continue dual anti-platelet therapy with aspirin and plavix, then aspirin alone Continue Atorvastatin ECHO pending Telemonitor showed no arrhythmia Will need to get arrange for Zio patch to monitor for abnormal rhythm if none detected while on telemonitor Continue monitor (3) HTN (hypertension): Continue amlodipine Continue monitor BP (4) Dyslipidemia: Total cholesterol: 184, HDL: 55, LDL: 107, triglycerides: 111 on 07/25/19 Continue Atorvastatin (5) BPH (benign prostatic hyperplasia): Continue tamsulosin, finasteride, tadalafil DVT Prophylaxis Lovenox SQ CODE STATUS Full Code Disposition Possible discharge tomorrow Admission and Anticipated Discharge Date Admission Date: July 24, 2019 Subjective Pt was seen and examined Lying in bed with no distress Pt said that he feels fine He said that he does not have any dizziness Denies any chest pain, palpitation, dizziness and SOB Physical Exam Physical Exam: General- No acute distress Head- atraumatic Eyes- PERRL, EOMI, ENT- oropharynx clear Neck- supple, no JVD Lungs- clear to auscultation Heart- regular rhythm; no murmur Abdomen- normal bowel sounds, soft, nontender Extremities- no calf tenderness Neuro- alert, oriented x 3; PERRL, EOMI; no facial palsy; no dysarthria Skin- warm & dry Results & Data Results & Data ([facility]) Vital Signs (Past 12 Hours) Vital Signs Temp Pulse Pulse Resp BP BP Pulse Ox 07/25/19 11:07 36.7 C 49 L 20 154/68 H 94 07/25/19 08:00 65 07/25/19 07:24 36.5 C 54 L 20 145/70 H 96 07/25/19 04:48 36.7 C 50 L 16 150/71 H 96 (1) HTN (hypertension) Hypertension type: unspecified Qualified Code(s): I10 - Essential (primary) hypertension
--- NOTE | 2019-07-25 14:33 | Consultation Report ---
DATE OF CONSULTATION: 07/25/2019 REASON FOR CONSULTATION: Possible transient ischemic attack. HISTORY OF PRESENT ILLNESS: The patient is an 84-year-old right-handed male with a history of hypertension and prostatic hypertrophy. On that background, he began having spells approximately 2-3 days prior to admission. The bulk of the spells have occurred while standing and he reports that he feels as if he is losing his balance, although not unidirectionally i.e., it can be to the right or to the left. It is unclear how long the duration and whether or not it is accompanied by any other neurologic symptoms. It sounds as if he has some type of unusual feeling, but denies any lightheadedness, dimming of vision, hearing muffling or vertigo. There are also no focal neurologic complaints with the bulk of the episodes i.e., no double vision, slurred speech, numbness, tingling, unilateral weakness. There is no chest pain or palpitations. He is not diaphoretic and it is not related to meals. He has had one episode while driving and he has a significant difficulty describing that other than saying he felt strange, again without focal neurologic deficits. Another episode occurred when he stood and he had the same feeling and he may have had a cold feeling or tingling in his fingertips. Again, the duration is probably several minutes, but the patient is uncertain. None of his medicines are new or changed in dose. In general, he does not report orthostatic symptoms with standing. He does not notice any vertigo and he notes none of this is positional in the sense associated with rolling in bed or tipping his head. He has not had any recent head or neck injury, chiropractic manipulation of the neck, medical or dental procedures. Weeks ago, he may have had a low-grade fever and some cough. This has resolved. He in general notes that the first episode occurred after exercising more than he typically exercises, meaning walking longer distances than he typically does. He does indicate that he tends not to drink as much fluid as he would expect he should. 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 His labs were notable for a white count of 6, H and H of 12.1/35.9, platelet count 218. Chemistry profile was notable for normal BUN/creatinine, glucose of 104, normal transaminases, and normal CK. LDL is 107, HDL is 55. TSH 1.66. Electrocardiogram showed sinus bradycardia with sinus arrhythmia and first-degree AV block, otherwise normal. The ventricular rate was 58, no significant change was found. The patient was not orthostatic in the Emergency Room. MRI of the brain, which I have reviewed, shows no acute intracranial abnormality. There is moderate left ethmoid sinus mucosal thickening and mild mucosal thickening in the frontal sinuses. There is a right mastoid effusion. There is minimal white matter changes. CTA of the neck shows nonopacification of the left vertebral artery at the level of C1 skull base with reconstitution at the level of the takeoff of the left pica. This is concerning for occlusion, possibly atherosclerotic in etiology, less likely due to dissection; this may be acute or chronic. Stenosis at the origins of the proximal courses of the internal carotid arteries, right greater than left, less than 50% stenosis. More significant 50%-75% stenosis focally within the horizontal portion of the petrous segment of the left internal carotid. This is also atherosclerotic in nature. PAST MEDICAL HISTORY: Hypertension, prostatic hypertrophy. No history of AL, stroke, transient ischemic attack, rheumatic fever, murmur, DVT, PE or cancer. PAST SURGICAL HISTORY: Vasectomy, cataract surgery, tonsillectomy. FAMILY HISTORY: Mother, stroke. SOCIAL HISTORY: The patient was a remote smoker, drinks 1 glass of wine per day. 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 HOME MEDICATIONS: Tylenol, amlodipine, finasteride, tadalafil, and tamsulosin. PHYSICAL EXAMINATION: VITAL SIGNS: Blood pressure 154/68, pulse 49, respirations 20, temperature 36.7, O2 sat 94%. GENERAL: The patient is awake and alert. He is an excellent historian. Spontaneous speech and language are normal. There are no carotid, vertebral or supraclavicular bruits. Radial pulses are palpably symmetric. NECK: Supple. NEUROLOGIC: Pupils are myotic but reactive. There are postsurgical. I could not reliably visualize the optic nerves. Motility was normal. There are normal visual miller, facial sensation and facial symmetry. Tongue was midline. Speech nondysarthric. Sternocleidomastoid and trapezius were full. Motor 5/5, no drift. Normal rapid alternating movements. Mildly diffusely brisk reflexes. Diminished ankle jerks, no clonus. Toes are downgoing. Oilzng-jy-aczk and gvlh-ar-ghte are normal. There is no dysdiadochokinesia. There is an ankle level to temperature. Gait is unremarkable for age. He has mild difficulty with tandem. Romberg plus/minus. Provocative head maneuvers negative. IMPRESSION: This patient has had multiple episodes of vaguely described instability, which have been relatively brief. It is unclear if there is any actual lightheadedness accompanying them, but there is no vertigo. It is unclear if these represent cerebral hypoperfusion related to bradycardia or orthostasis hypotension. Given the left vertebral occlusion, the patient would certainly be more prone to have posterior circulation ischemic symptoms if there was decreased cerebral perfusion pressure. Alternatively, this could represent a transient ischemic attack. 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 PLAN: Recommend echocardiography. Risk factor modification, statin therapy with goal LDL of 70 or less. The patient needs cardiac monitoring. He has been mildly persistently bradycardic. 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 I would recommend dual antiplatelet therapy with aspirin and Plavix. I would continue that for 21 days and then discontinue Plavix. The patient and I discussed symptoms of bleeding, bruising that would be of concern. The patient is on 2 prostate medicines and an antihypertensive - all of which can cause orthostatic hypotension; however, one of these episodes occurred while the patient was seated. Certainly if the episodes persist and/or postural, continued attempts at monitoring orthostatic blood pressure would be reasonable and consideration of reducing one of his medicines for prostatic hypertrophy might be reasonable as well. The patient will try to stay adequately hydrated. The patient can see me post-discharge either via telephone, televideo or in person encounter.
[2019-07-25] MEDS: ENOXAPARIN INJ 40 MG/0.4 ML SYR SQ SCH (17:52)
[2019-07-25] MEDS: TAMSULOSIN HCL 0.4 MG CAP PO SCH (20:47)
[2019-07-25] MEDS: FINASTERIDE 5 MG TAB PO SCH (21:04)
[2019-07-26] MEDS: AMLODIPINE BESYLATE 5 MG TAB PO SCH (07:58)
[2019-07-26] MEDS: CLOPIDOGREL BISULFATE 75 MG TAB PO SCH (07:58)
[2019-07-26] MEDS: ASPIRIN 81 MG ECTAB PO SCH (07:59)
[2019-07-26] MEDS: ATORVASTATIN 40 MG TAB PO SCH (07:59)
--- NOTE | 2019-07-26 09:21 | XCELERA ---
[id number]
--- NOTE | 2019-07-26 10:57 | Electrocardiogram Report ---
Test Reason : Blood Pressure : / mmHG Vent. Rate : 051 BPM Atrial Rate : 051 BPM P-R Int : 268 ms QRS Dur : 074 ms QT Int : 460 ms P-R-T Axes : 070 -10 026 degrees QTc Int : 423 ms Sinus bradycardia with 1st degree A-V block Poor R wave progression, consider anterior MN vs. lead placement vs. LVH Abnormal ECG When compared with ECG of 24-JUL-2019 12:53, No significant change was found Confirmed by Murray Matt ([id number]) on 07/26/2019 10:57:10 AM Referred By: REFERRED SELF Confirmed By:Murray Matt
--- NOTE | 2019-07-26 11:01 | Hospitalist Progress Note ---
Date of Service July 26, 2019 Assessment & Plan (1) Dizziness: (2) Gait disturbance: Possible Left Vertebral Artery Occlusion Present on admission with dizziness and unsteady gait Stroke rule out CTA HEAD showed no acute intracranial abnormality. 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 CTA NECK showed nonopacification of the left vertebral artery at the level of C1-skull base with reconstitution at the level of the takeoff of the left PICA. This is concerning for occlusion possibly atherosclerotic in etiology or less likely due to dissection. This may be acute or chronic. Stenoses of the origins and proximal courses of the internal carotid arteries, right greater than left, less than 50% luminal stenosis. More significant 50-75% stenosis focally within the horizontal portion of the petrous segment of the left ICA. MRI showed no acute intracranial abnormality Neuro on board Case discussed with Dr. Banegas recommended to continue dual anti-platelet therapy with aspirin and plavix, then aspirin alone Continue Atorvastatin ECHO showed no wall motion abnormality with EF 60-65% Bradycardia noted on telemonitor Will need to get arrange for Zio patch to monitor for abnormal rhythm if none detected while on telemonitor Follow up with neurology Dr. Segal in 2 to 4 weeks Continue monitor (3) Bradycardia: Pt said that he used to run alot, but now he walks alot Does not know his baseline HR Telemonitor showed HR dropped in the 38's, but no pause EKG showed sinus bradycardia with 1st decree AV Block ECHO showed no wall motion abnormality Cardiology consult Will need outpatient ZIO patch to monitor his heart rhythm Follow up with cardiology in 4 weeks after ZIO monitor completed. Ok to discharge home from cardiac standpoint (4) HTN (hypertension): Continue amlodipine Continue monitor BP (5) Dyslipidemia: Total cholesterol: 184, HDL: 55, LDL: 107, triglycerides: 111 on 07/25/19 Continue Atorvastatin (6) BPH (benign prostatic hyperplasia): Continue tamsulosin, finasteride, tadalafil DVT Prophylaxis Lovenox SQ CODE STATUS Full Code Disposition Possible discharge home today Admission and Anticipated Discharge Date Admission Date: July 24, 2019 Subjective Pt was seen and examined Sitting in bed with no distress Pt said that he feels fine He said that he has been walking around in his room He said that he does not feel dizzy Denies any chest pain, palpitation, dizziness and SOB Physical Exam Physical Exam: General- No acute distress Head- atraumatic Eyes- PERRL, EOMI, ENT- oropharynx clear Neck- supple, no JVD Lungs- clear to auscultation Heart- +bradycardia Abdomen- normal bowel sounds, soft, nontender Extremities- no calf tenderness Neuro- alert, oriented x 3; PERRL, EOMI; no facial palsy; no dysarthria Skin- warm & dry Results & Data Results & Data ([facility]) Vital Signs (Past 12 Hours) Vital Signs Temp Pulse Pulse Resp BP Pulse Ox 07/26/19 08:00 46 L 07/26/19 07:24 36.7 C 48 L 18 138/68 94 07/26/19 04:17 36.6 C 56 L 18 140/63 97 07/25/19 23:56 52 L 07/25/19 23:51 36.8 C 57 L 18 148/68 H 94 (1) HTN (hypertension) Hypertension type: unspecified Qualified Code(s): I10 - Essential (primary) hypertension
--- NOTE | 2019-07-26 12:49 | Cardiology Consultation ---
Date of Consultation July 26, 2019 Assessment & Plan (1) Bradycardia: (2) Dizziness: (3) Carotid stenosis, left: (4) Dyslipidemia: (5) HTN (hypertension): Patient presents with occasional dizziness with bradycardia noted on telemetry. Currently there is no correlation between his sinus bradycardia and reported symptoms. Recommend outpatient 14-day ZIO monitor for further evaluation. CTA of the neck suggests moderate left internal carotid artery stenosis. Medical management with aspirin, and statin therapy recommended at this time. Resting 2D transthoracic echocardiogram reviewed demonstrating preserved LV systolic function without significant valvular pathology. All questions answered to patient satisfaction. Thank you for allowing to participate in the care of your patient. I will see him for outpatient cardiology follow-up in 4 weeks after ZIO monitor completed. History of Present Illness Reason for Consultation: Dizziness, bradycardia Requesting Physician: Dr. Kim Attending Physician: Oracio Kim MD History of Present Illness 84-year-old male presented to the emergency department per the direction of his primary care physician due to dizziness and lightheadedness. Patient reports more than 1 week of occasional gait instability and "dizziness". Denies syncope or near syncope. He was evaluated by neurology who recommended dual antiplatelet therapy, resting 2D transthoracic echocardiogram, and outpatient 2- week monitor. Currently, patient resting comfortably. He describes episodes where he is unstable and has to grasp a wall or something to avoid falls. Denies overt syncope. Generally he walks 1 to 1.5 miles daily. His functional capacity is stable. He does not use a cane or walker. Denies exertional chest discomfort or unusual shortness of breath. No orthopnea, PND, lower extremity edema, or claudication. No recent medication changes. He does not use beta-gladys chronically. Telemetry since admission demonstrates sinus rhythm and sinus bradycardia with heart rates as low as 38 bpm during presumed hours of sleep. No significant daytime resting bradycardia, pauses, or high degree heart block recorded. ECG demonstrates sinus rhythm with first-degree AV block. Patient tolerating diet and medications. Requesting discharge if possible. Allergies Allergy/AdvReac Type Severity Reaction Status Date / Time No Known Allergies Allergy . Unverified 07/24/19 14:42 Home Medications Home Medications Medication Instructions Recorded Confirmed Type acetaminophen [Tylenol Extra 1,000 mg PO QAM 07/24/19 07/24/19 History Strength] amlodipine 5 mg PO DAILY 07/24/19 07/24/19 History finasteride 5 mg PO QPM 07/24/19 07/24/19 History tadalafil 5 mg PO QAM 07/24/19 07/24/19 History tamsulosin 0.4 mg PO HS 07/24/19 07/24/19 History aspirin 81 mg PO QAM #30 tab 07/26/19 Rx atorvastatin 40 mg PO QAM #30 tab 07/26/19 Rx clopidogrel 75 mg PO QAM #30 tab 07/26/19 Rx Patient History Medical History BPH (benign prostatic hyperplasia) Dyslipidemia HTN (hypertension) (Acute) Surgical History H/O vasectomy History of cataract surgery Hx of tonsillectomy Family History Mother Stroke Social History Preferred Language: Chinese Communication Ability: Effective Beliefs That Will Affect Care: None marital status: Current Living Situation: Alone Feels Safe at Home: Yes Smoking Status: Former smoker Tobacco Type: cigars ; Hx Alcohol Use: Yes Alcohol type: wine Hx Substance Use: No Review of Systems Review of Systems: All systems reviewed & are unremarkable except as noted in HPI & below Physical Exam Constitutional: well developed and well nourished; no acute distress and not ill appearing Respiratory: normal respiratory effort; no respiratory distress, no labored breathing and no retractions Auscultation: no crackles, no rales, no rhonchi and no wheezes Cardiovascular: Rate/Rhythm: regular rate and + bradycardic Heart Sounds: normal S1, normal S2 and + murmur (Soft, 1/6 midsystolic murmur heard best at the left sternal border.) Palpation: normal PMI Vessels: no JVD and no carotid bruit Extremities: no edema Results & Data ([facility]) Vital Signs (Past 12 Hours) Vital Signs Temp Pulse Pulse Resp BP BP Pulse Ox 07/26/19 11:00 37.2 C 45 L 20 157/61 H 92 07/26/19 08:00 46 L 07/26/19 07:24 36.7 C 48 L 18 138/68 94 07/26/19 04:17 36.6 C 56 L 18 140/63 97 (1) HTN (hypertension) Hypertension type: unspecified Qualified Code(s): I10 - Essential (primary) hypertension
--- NOTE | 2019-07-26 14:06 | Progress Notes ---
DATE: 07/26/2019 SUBJECTIVE: I am seeing Mr. Iverson in spells of dizziness. The patient has not had any recurrent events and has been up and ambulating. He has intermittently been bradycardic overnight and cardiology has been consulted. PHYSICAL EXAMINATION: GENERAL: The patient is awake and alert, spontaneous speech and language are unremarkable. VITAL SIGNS: Blood pressure 154/61, pulse 45. NEUROLOGIC: Normal extraocular motility, facial symmetry. Symmetric strength, normal isbhdd-zd-tokx and yoow-gt-wlvi. IMPRESSION AND PLAN: Global hypoperfusion perhaps with some selected symptomatology referral to the posterior circulation given the left vertebral occlusion and reconstitution. Alternatively, this may have simply represented bradycardia, hypotension. Doubt that this is orthostatic given one episode occurred while seated and driving. The patient has significant difficulty describing the episodes, it could be a transient ischemic attack as well. Continue dual antiplatelet therapy for 21 days and then discontinue Plavix. We discussed signs and side effects such as excessive bruising and bleeding. The patient should have a engine monitor for 2 weeks as an outpatient. Continue risk factor modification, statin therapy. The patient has stenosis of 50%-75% at the horizontal portion of the petrous segment of the left internal carotid artery. This is not surgically amenable. Continue risk factor modification. The patient should see my department in followup post discharge.
[2019-07-26] MEDS ORDERED: STROKE PATIENT DISCHARGE STA (14:10)
--- NOTE | 2019-07-26 17:24 | Hospitalist Progress Note ---
Date of Service July 26, 2019 Assessment & Plan (1) Dizziness: (2) Gait disturbance: Possible Left Vertebral Artery Occlusion Present on admission with dizziness and unsteady gait Stroke rule out CTA HEAD showed no acute intracranial abnormality. 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 CTA NECK showed nonopacification of the left vertebral artery at the level of C1-skull base with reconstitution at the level of the takeoff of the left PICA. This is concerning for occlusion possibly atherosclerotic in etiology or less likely due to dissection. This may be acute or chronic. Stenoses of the origins and proximal courses of the internal carotid arteries, right greater than left, less than 50% luminal stenosis. More significant 50-75% stenosis focally within the horizontal portion of the petrous segment of the left ICA. MRI showed no acute intracranial abnormality Neuro on board Case discussed with Dr. Banegas recommended to continue dual anti-platelet therapy with aspirin and plavix, then aspirin alone Continue Atorvastatin ECHO showed no wall motion abnormality with EF 60-65% Bradycardia noted on telemonitor Will need to get arrange for Zio patch to monitor for abnormal rhythm if none detected while on telemonitor Follow up with neurology Dr. Segal in 2 to 4 weeks Continue monitor (3) Bradycardia: Pt said that he used to run alot, but now he walks alot Does not know his baseline HR Telemonitor showed HR dropped in the 38's, but no pause EKG showed sinus bradycardia with 1st decree AV Block ECHO showed no wall motion abnormality Cardiology consult Will need outpatient ZIO patch to monitor his heart rhythm Follow up with cardiology in 4 weeks after ZIO monitor completed. Ok to discharge home from cardiac standpoint (4) HTN (hypertension): Continue amlodipine Continue monitor BP (5) Dyslipidemia: Total cholesterol: 184, HDL: 55, LDL: 107, triglycerides: 111 on 07/25/19 Continue Atorvastatin (6) BPH (benign prostatic hyperplasia): Continue tamsulosin, finasteride, tadalafil DVT Prophylaxis Lovenox SQ CODE STATUS Full Code Disposition Possible discharge home today Admission and Anticipated Discharge Date Admission Date: July 24, 2019 Physical Exam Physical Exam: General- No acute distress Head- atraumatic Eyes- PERRL, EOMI, ENT- oropharynx clear Neck- supple, no JVD Lungs- clear to auscultation Heart- +bradycardia Abdomen- normal bowel sounds, soft, nontender Extremities- no calf tenderness Neuro- alert, oriented x 3; PERRL, EOMI; no facial palsy; no dysarthria Skin- warm & dry Results & Data Results & Data ([facility]) Vital Signs (Past 12 Hours) Vital Signs Temp Pulse Pulse Resp BP BP Pulse Ox 07/26/19 14:21 37.2 C 45 L 20 157/61 H 138/68 92 07/26/19 14:20 37.2 C 45 L 20 157/61 H 138/68 92 07/26/19 11:00 37.2 C 45 L 20 157/61 H 92 07/26/19 08:00 46 L 07/26/19 07:24 36.7 C 48 L 18 138/68 94 (1) HTN (hypertension) Hypertension type: unspecified Qualified Code(s): I10 - Essential (primary) hypertension
--- NOTE | 2019-07-26 17:28 | Discharge Summary ---
Date of Service July 26, 2019 Admission HPI Per Admitting Provider Pt is 84 y/o M with PMH HTN, dyslipidemia, BPH presented to ER with c/o dizziness x couple of days. Patient reports couple days ago walks 2 miles and and returned home had episode of dizziness and feeling off balance with standing. Patient reports this has continued with feeling off balance and dizzy with standing and walking. Patient denies any falls or syncope. States yesterday noticed had some blurry vision while doing a puzzle and had to use his reading glasses. States this morning had right-sided headache when he felt dizzy with walking. Patient states last week had mild cough, denies shortness of breath, fever, chills. Denies diaphoresis, N/V/D/C, neck pain, CP, SOB, orthopnea, palpitations, sore throat, choking, otalgia, rhinorrhea, abdominal pain, paresthesias, weakness, extremity weakness, extremity edema, rashes, urinary symptoms. Denies recent travel, known COVID-19 contacts. Admission Exam Per Admitting Provider General: no distress, WDWN Head: normocephalic, atraumatic Eyes: PERRL, EOM's intact, +horizontal nystagmus, conjunctiva non-injected, anicteric ENT: normal inspection external ears, nose, mucous membranes moist Neck: supple, trachea midline, ROM intact Lungs: clear, no respiratory distress, no wheezing/rhonchi/rales CV: RRR, no murmur, no JVD, no pretibial edema Abd: normal BS, soft, non-tender Ext: no cyanosis, no calf tenderness Neuro: A&O x 3, normal affect, facial sensation is intact and symmetric, face is strong and symmetric, Hearing grossly intact using his hearing aids, no dysarthria, shoulder shrug intact, tongue is midline, normal movement, no fasciculations, muscle tone normal, strength 5/5 upper and lower extremities Skin: warm, dry Principal Diagnosis Dizziness: Gait disturbance: Left Carotid stenosis Bradycardia: HTN (hypertension): Dyslipidemia: BPH (benign prostatic hyperplasia): Discharge Exam General- No acute distress Head- atraumatic Eyes- PERRL, EOMI, ENT- oropharynx clear Neck- supple, no JVD Lungs- clear to auscultation Heart- +bradycardia Abdomen- normal bowel sounds, soft, nontender Extremities- no calf tenderness Neuro- alert, oriented x 3; PERRL, EOMI; no facial palsy; no dysarthria Skin- warm & dry Discharge Data Allergies Allergy/AdvReac Type Severity Reaction Status Date / Time No Known Allergies Allergy . Unverified 07/24/19 14:42 Consultations 07/24/19 15:37 Consult Neurology Stat ED Decision to Admit Stat 07/24/19 17:49 Consult Case Management - Discharge Planning Routine Consult Neurology Routine 07/26/19 08:11 Consult Cardiology Routine Ordered Studies 07/24/19 13:05 CT angio head wo/w Stat 07/24/19 13:06 CT angio neck with con Stat 07/24/19 14:25 MR brain wo con Stat XR chest 1V portable CLINICAL HISTORY: weakness COMPARISON STUDY: Chest radiograph and chest CT November 26, 2013. FINDINGS: Lung volumes are normal. Lungs are clear. There is no pneumothorax or pleural effusion. Mild to moderate cardiomegaly is noted. Mediastinal contours are normal. There is no evidence for pulmonary edema. IMPRESSION: 1. No acute cardiopulmonary findings. 2. Mild to moderate cardiomegaly. ACT 112: Negative or not required by law. Electronically signed by: Shivam Lemus M.D. 07/24/2019 2:18 PM Dictated: 07/24/19 1416 Transcribed: 07/24/[address] angio head wo/w CLINICAL HISTORY: 84 years-old Male presenting with Pt c/o dizziness. TECHNIQUE: Multidetector CT angiography of the head was performed before and after the administration of intravenous contrast. 3-D volumetric and/or maximum intensity projection (MIP) images were subsequently reconstructed for review. IV contrast: 120 mL of Optiray 320. One or more dose lowering techniques were used consistent with the principles of ALARA (as low as reasonably achievable), including automatic exposure control, mA or kV adjustment to individual patient size, and/or use of iterative reconstruction. COMPARISON: Noncontrast CT head from 04/10/2009. CT DOSE (mGy.cm): The estimated cumulative dose is 1220.04 mGy.cm. FINDINGS: Test Grader topogram: Unremarkable. CT HEAD: Proportional ventricular and sulcal prominence, likely age-related parenchymal volume loss. No hemorrhage. Brain parenchyma normal in appearance with preserved cash-white differentiation. No acute territorial infarct. No mass effect or midline shift. No extra-axial fluid collection. Paranasal sinuses and mastoid air cells clear. Calvarium intact. CTA HEAD: Anterior circulation: Atherosclerosis of the cavernous segments of the internal carotid arteries (ICA). Atherosclerotic plaque results in mild luminal stenosis of the paraclinoid right ICA. Intracranial portions of the ICAs otherwise patent to the level of the termini. 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 A2 segment of the right KATHY and left KATHY patent. Mild atherosclerotic narrowing of the M2 segments of the right middle cerebral artery (MCA). Left MCA patent. Anterior communicating artery patent. Posterior circulation: Right dominant vertebral artery. Intradural portions of the vertebral arteries patent. Posterior inferior cerebellar arteries patent. Basilar artery patent. Anterior inferior cerebellar arteries poorly visualized. Superior cerebellar arteries patent. Right posterior cerebral artery (CYLINDER FILLER) in the T1 and T2 segments with mild multifocal stenoses likely atherosclerotic in etiology. Left CYLINDER FILLER patent. Left posterior communicating artery (P-comm) patent. Right P-comm hypoplastic or aplastic. Dural venous sinuses: Patent. Other: Allowing for the phase of contrast, brain parenchyma within normal limits. Calvarium intact. IMPRESSION: 1. No acute intracranial abnormality. 2. Atherosclerosis results in mild (less than 25%) stenoses in the paraclinoid right ICA, A2 segments of the right MCA, and right CYLINDER FILLER. Otherwise no evidence of aneurysm, focal vessel occlusion, or significant stenosis of the intracranial arteries. ACT 112: Negative or not required by law. Electronically signed by: Jonnathan Patrick M.D. 07/24/2019 2:11 PM Dictated: 07/24/19 1402 Transcribed: 07/24/[address] angio neck with con CLINICAL HISTORY: 84 years-old Male presenting with Pt c/o dizziness. TECHNIQUE: Multidetector CT angiography of the neck was performed after the administration of intravenous contrast. 3-D volumetric and/or maximum intensity projection (MIP) images were subsequently reconstructed for review. IV contrast: 120 mL of Optiray 320. One or more dose lowering techniques were used consistent with the principles of ALARA (as low as reasonably achievable), including automatic exposure control, mA or kV adjustment to individual patient size, and/or use of iterative reconstruction. Stenosis measurements were based on NASCET-like criteria (distal lumen diameter as the denominator for stenosis measurement). COMPARISON: None. CT DOSE (mGy.cm): The estimated cumulative dose is 1220.04. FINDINGS: Test Grader topogram: Unremarkable. Aortic arch: Atherosclerosis of the three-vessel aortic arch with patent origins of the branch vessels. Innominate artery: Patent. Right subclavian artery: Patent. Right common carotid artery: Patent. Right internal and external carotid arteries: Anomaly noncalcified atherosclerotic plaque at the carotid bifurcation results in less than 50% stenosis of the origin of the right internal carotid artery (ICA) and less than 25% stenosis as well as luminal irregularity of the proximal ICA. ECA patent. Left common carotid artery: Patent. Left internal and external carotid arteries: Mild or calcified and noncalcified atherosclerotic plaque at the carotid bifurcation results in less than 25% stenosis of the origin of the left ICA and proximal ICA course. ECA patent. Focal 50-75% stenosis within the horizontal portion of the petrous segment of the left ICA (series 6 image 363). Left subclavian artery: Mild noncalcified atherosclerotic plaque without significant stenosis. Vertebral arteries: Right dominant vertebral artery. The origin of the left vertebral artery is not well delineated though grossly patent. There is luminal irregularity of the left vertebral artery with intermittent stenoses and dilatation. Nonopacification of the left vertebral artery at the level of C1- skull base until the intradural portion at the level of the takeoff of the left posterior inferior cerebellar artery, possibly reconstituted by retrograde flow. Other: Soft tissues of the neck normal allowing for the phase of contrast. Degenerative changes of the cervical spine. Lung apices clear. IMPRESSION: 1. Nonopacification of the left vertebral artery at the level of C1-skull base with reconstitution at the level of the takeoff of the left PICA. This is concerning for occlusion possibly atherosclerotic in etiology or less likely due to dissection. This may be acute or chronic. 2. Stenoses of the origins and proximal courses of the internal carotid arteries, right greater than left, less than 50% luminal stenosis. 3. More significant 50-75% stenosis focally within the horizontal portion of the petrous segment of the left ICA. This is also atherosclerotic in etiology. The report will be called/faxed according to standard departmental protocol. ACT 112: Negative or not required by law. Electronically signed by: Jonnathan Patrick M.D. 07/24/2019 2:20 PM Dictated: 07/24/19 1411 Transcribed: 07/24/19 1411 MRI OF THE BRAIN WITHOUT IV CONTRAST CLINICAL HISTORY: Dizziness. COMPARISON STUDY: CT of the brain performed the same day 07/24/2019. TECHNIQUE: MRI of the brain was performed utilizing various T1 and T2-weighted sequences in the axial, sagittal, and coronal planes. IV contrast was not administered for this examination. FINDINGS: Brain parenchyma: There is age-related involutional change noting minimal microangiopathic disease. There is no hemorrhage or mass effect. There is no restricted diffusion to suggest acute ischemia. Cash-white matter differentiation is preserved. No extra-axial fluid collection is seen. The cerebellar tonsils are normal in configuration. Ventricles, sulci, and cisterns: Prominent secondary to involutional change. Pituitary and sella: Unremarkable. Intracranial vasculature: Normal flow voids are maintained at the skull base. Orbits: The bony orbits are grossly intact. Orbital contents are normal in appearance noting bilateral ocular lens implants. Sinuses and mastoids: There is moderate mucosal thickening within the left ethmoid sinuses. Mild mucosal thickening is noted in the left frontal sinus. The remaining paranasal sinuses are clear. There is a right mastoid effusion. Calvarium: Unremarkable. Cervical cord: Partially visualized cervical spinal cord is normal in morphology and signal intensity. IMPRESSION: No acute intracranial abnormality. ACT 112: Negative or not required by law. Electronically signed by: Tu Ortiz M.D. 07/24/2019 4:50 PM Dictated: 07/24/19 164 Transcribed: 07/24/191646 Hospital Course (1) Dizziness: (2) Gait disturbance: Possible Left Vertebral Artery Occlusion Present on admission with dizziness and unsteady gait Stroke rule out CTA HEAD showed no acute intracranial abnormality. Atherosclerosis results in mild (less than 25%) stenoses in the paraclinoid right ICA, A2 segments of the right MCA, and right CYLINDER FILLER. CTA NECK showed nonopacification of the left vertebral artery at the level of C1-skull base with reconstitution at the level of the takeoff of the left PICA. This is concerning for occlusion possibly atherosclerotic in etiology or less likely due to dissection. This may be acute or chronic. Stenoses of the origins and proximal courses of the internal carotid arteries, right greater than left, less than 50% luminal stenosis. More significant 50-75% stenosis focally within the horizontal portion of the petrous segment of the left ICA. MRI showed no acute intracranial abnormality Neuro on board Case discussed with Dr. Banegas recommended to continue dual anti-platelet therapy with aspirin and plavix, then aspirin alone Continue Atorvastatin ECHO showed no wall motion abnormality with EF 60-65% Bradycardia noted on telemonitor Will need to get arrange for Zio patch to monitor for abnormal rhythm if none detected while on telemonitor Follow up with neurology Dr. Segal in 2 to 4 weeks Continue monitor (3) Bradycardia: Pt said that he used to run alot, but now he walks alot Does not know his baseline HR Telemonitor showed HR dropped in the 38's, but no pause EKG showed sinus bradycardia with 1st decree AV Block ECHO showed no wall motion abnormality Cardiology consult Will need outpatient ZIO patch to monitor his heart rhythm Follow up with cardiology in 4 weeks after ZIO monitor completed. Ok to discharge home from cardiac standpoint (4) HTN (hypertension): Continue amlodipine Continue monitor BP (5) Dyslipidemia: Total cholesterol: 184, HDL: 55, LDL: 107, triglycerides: 111 on 07/25/19 Continue Atorvastatin (6) BPH (benign prostatic hyperplasia): Continue tamsulosin, finasteride, tadalafil DVT Prophylaxis Lovenox SQ CODE STATUS Full Code Disposition Possible discharge home today Total Time Total Time Spent Total Time Spent (In Minutes): 35 minutes Total Time Includes: Examination of the Patient, Discharge Planning, Medication Reconciliation, Communication With Other Providers and Other Discharge Plan Discharge Items Patient Disposition: Home - Self-Care Reason For Visit: DIZZINESS Discharge Diagnosis: Dizziness: Gait disturbance: Left Carotid stenosis Bradycardia: HTN (hypertension): Dyslipidemia: BPH (benign prostatic hyperplasia): Activity: Resume your previous activity Non-emergency contact: Primary Care Provider, Web Assistant and Neurologist Call non-emergency contact if: you have any medication questions Follow-up/Referrals: Jay Chamberlain, [Primary Care Provider] - Diet: Heart Healthy Addtl Attending Provider Instructions: Follow up with your primary care provider Dr. Chamberlain within 1 week (office will call you for the appointment) Follow up with cardiology Dr. Lujan in 4 weeks after completed the ZIO monitor (please call for the follow up appointment) Follow up with neurology Dr. Banegas in 2 to 4 weeks (Please call for the follow up appointment) You will need to wear a ZIO monitor for 14 days to monitor your heart rate ( your physicians will arrange for that) Continue both plavix and aspirin for 21 days, then after 21 days continue the aspirin only Watch for any abnormal bleeding while on aspirin and plavix Avoid any NSAID (such as motrin, aleve, naproxen, ibuprofen, advil,...) while taking plavix and aspirin due to increase risk of bleeding Since starting on Atorvastatin, check LFT in 2 weeks to monitor your liver enzymes (your physician will order the lab in the next follow up appointment) Fall precaution Pending Studies at Discharge: No Stand-Alone Forms: My [facility], Smoking Cessation Medications and DC Order Prescriptions: New atorvastatin 40 mg Tablet 40 mg PO QAM Qty: 30 RF: 0 clopidogrel 75 mg Tablet 75 mg PO QAM Qty: 30 RF: 0 aspirin 81 mg Tablet,Delayed Release (Dr/Ec) 81 mg PO QAM Qty: 30 RF: 0 Continued acetaminophen [Tylenol Extra Strength] 500 mg Tablet 1,000 mg PO QAM RF: 0 tamsulosin 0.4 mg Capsule 0.4 mg PO HS RF: 0 finasteride 5 mg Tablet 5 mg PO QPM RF: 0 tadalafil 5 mg Tablet 5 mg PO QAM RF: 0 amlodipine 5 mg Tablet 5 mg PO DAILY RF: 0 Discharge Orders: Discharge Order (Routine); Ordered 07/26/19 Ordered By: Oracio Kim Admission Data Admit Date/Time: 07/24/19 15:19 Attending Provider: Oracio Kim Admit Provider: Oracio Kim Primary Care Provider: Jay Chamberlain Other Providers: Rocío Segal ; Oracio Kim ; Solis Lujan Other Interventions: Discharge Summary Assessment (RN) Last Done: 07/26/19 14:21 DC Date/Time DO NOT enter until pt leaves facility: 07/26/19 14:44
== END 2019-07-26 14:44 | disposition home or self-care (01) | DRG 149 ==
LOC: ED 12:49 → 2N 15:19

== ENCOUNTER 2022-02-20 12:02 | Observation (INO) ==
--- NOTE | 2022-02-14 15:01 | Anesthesiology Consultation ---
Date of Service February 14, 2022 Assessment & Plan (1) Encounter for pre-operative examination: Chart Review Chart Review: Acceptable Risk for Surgery and Patient NOT seen in Pre Admission Testing -COVID screening: Per PAT nursing assessment on 02/14/22. No known COVID-19 positive contacts or current COVID-19 related symptoms. Traveled to [facility] one month ago. Patient vaccinated for Covid. At surgeon discretion if preop Covid testing being done. Last seen by cardio 12/07/21= seen for follow up on asymptomatic moderate left ICA stenosis, HLD, sinus leanna and HTN. Sinus leanna- asymptomatic- average HR 57bpm per most recent Zio monitor. H/p moderate asymptomatic left ICA stenosis- mild stenosis per repeat duplex 2020 and 2021. HLD- controlled. HTN controlled. Repe at carotid duplex in one year. Continue current meds. History Surgery Operation Date: 02/20/22 07:30 Proposed Procedures p Transurethral Resection Prostate - Devon Batres MD Height/Weight Height: 5 ft 10 in Weight: 78.471 kg Allergies Allergy/AdvReac Type Severity Reaction Status Date / Time No Known Allergies Allergy . Unverified 02/14/22 13:21 Medications Home Medications Medication Instructions Recorded Confirmed Last Taken acetaminophen 500 mg tablet 1,000 mg PO QAM 07/24/19 02/14/22 07/24/19 (Tylenol Extra Strength) amlodipine 5 mg tablet 5 mg PO QAM 07/24/19 02/14/22 07/24/19 aspirin 81 mg tablet,delayed 81 mg PO QAM #30 tabs 07/26/19 02/14/22 Unknown release atorvastatin 40 mg tablet 40 mg PO QAM #30 tabs 07/26/19 02/14/22 Unknown tamsulosin 0.4 mg capsule 0.4 mg PO HS #90 caps 01/18/22 02/14/22 Unknown finasteride 5 mg tablet 5 mg PO HS 02/14/22 02/14/22 Unknown omeprazole 1 tab PO Q2D 02/14/22 02/14/22 Unknown tadalafil 5 mg tablet 5 mg PO UD PRN sexual dysfunction 02/14/22 02/14/22 Unknown Past Medical History Medical History BPH (benign prostatic hyperplasia) Carotid stenosis, left <50% stenosis to bilateral ICAs per 09/2021 carotid doppler Dyslipidemia History of COVID-2020, home test and drive thru test, not hosp; "mild" symptoms>resolved. HTN (hypertension) Osteoarthritis Bilat knees; s/p knee injections; walk with a cane Past Family History Family History Mother Stroke Past Surgical History Surgical History H/O vasectomy History of cataract surgery bilat. Hx of colonoscopy Hx of tonsillectomy Social History Smoking Status: Former smoker tobacco type: cigarettes and cigars Do You Dip or Chew Tobacco: No Smoking End Date: "none for years" 30+ years ago Hx Alcohol Use: Yes Alcohol type: beer, wine and hard liquor alcohol intake frequency: 0-2 drinks per day Alcohol Intake Frequency Comment: 1 drink per day Hx Substance Use: No substance use type: does not use Lab Results Anesthesia Preop Results Results Anesthesia Widget: WBC 6.84 K/ul (4.8-10.8) 02/08/22 Hgb 11.5 g/dl (14.0-18.0) L 02/08/22 Hct 34.0 % (40.1-51.0) L 02/08/22 Plt 242 K/uL (130-400) 02/08/22 Na 137 mmol/L (136-145) 02/08/22 K 4.2 mmol/L (3.5-5.1) 02/08/22 Cl 104 mmol/L (98-107) 02/08/22 CO2 29 mmol/L (21-32) 02/08/22 BUN 16 mg/dl (6-23) 02/08/22 Creat 0.87 mg/dl (0.6-1.4) 02/08/22 Glucose Level 104 mg/dl (70-99(Fasting)) H 02/08/22 Urine Color Yellow 02/08/22 Urine Appearance Clear (Clear) 02/08/22 Urine pH 6.0 (4.5-7.5) 02/08/22 Urine Specific [place] 1.013 (1.000-1.030) 02/08/22 Urine Protein Negative (Negative) 02/08/22 Urine Glucose (UA) Negative (Negative) 02/08/22 Urine Ketones Negative (Negative) 02/08/22 Urine Blood Negative (Negative) 02/08/22 Urine Nitrite Negative (Negative) 02/08/22 Urine Bilirubin Negative (Negative) 02/08/22 Urine Urobilinogen Negative (Negative) 02/08/22 Urine Leukocyte Esterase Trace (Negative) H 02/08/22 Urine WBC (Auto) 1-5 /hpf (0-5) 02/08/22 Urine RBC (Auto) 0-4 /hpf (0-4) 02/08/22 Urine Hyaline Casts (Auto) 0 /lpf (0-5) 02/08/22 Urine Epithelial Cells (Auto) 20-30 /lpf (0-5) H 02/08/22 Urine Bacteria (Auto) Negative (Negative) 02/08/22 Testing Laboratory Results 02/08/22= URINE CULTURE: Three types of organisms present, all moderate counts probable skin amy. Electrocardiogram Date: 02/08/22 SB with 1st degree AVB at 54bpm. Anteroseptal infarct (cited on or before Feb 08, 2022). When compared to EKG from July 26, 2019- questionable change in initial forces of anteroseptal leads per cardio. (EKG from September 05, 2020 in [facility] included- similar in appearance by personal visual inspection) Chest X-Ray Date: 02/08/22 Mild cardiomegaly with no active disease in the chest. Hiatal hernia. Echocardiogram Date: 07/25/19 EF: 60-65% LV Function: normal RWMA: + none Other Findings: + diastolic dysfunction (Grade II ); no LVH LA mildly dilated. Mild MR. Mild TR. Other Testing Carotid Duplex 10/23/21= Right and left carotid duplex indicates evidence of less than 50% stenosis to bilateral ICAs. Antegrade flow to both vertebral arteries
[~2022-02-20 12:02] MED LIST: CIPROFLOXACIN / D5W 400 MG/200 ML BAG IV SCH; LR 15ML/HR IV SCH
[2022-02-20] MEDS ORDERED: ONDANSETRON INJ 2 MG/ML 2 ML VIAL IV PRN (13:58)
[2022-02-20] MEDS ORDERED: ATROPINE SULFATE 0.1 MG/ML 10ML SYR IV PRN (13:58)
[2022-02-20] MEDS ORDERED: fentaNYL citrate 100 MCG/2 ML VIAL IV PRN (13:58)
[2022-02-20] MEDS ORDERED: ePHEDrine sulfate 50 MG/ML AMP IV PRN (13:58)
--- NOTE | 2022-02-20 15:57 | History & Physical Bridge Note ---
Date of Service February 20, 2022 History & Physical Bridge Note I have examined the patient, reviewed the History & Physical and in the interval since the performance of the History & Physical I have noted the following changes of clinical significance: no changes noted
[2022-02-20] MEDS ORDERED: MIDAZOLAM HCL 1 MG/ML 2ML VIAL ONE (16:10)
[2022-02-20] MEDS ORDERED: fentaNYL citrate 100 MCG/2 ML VIAL ONE (16:10)
[2022-02-20] MEDS ORDERED: ePHEDrine sulfate 50 MG/ML AMP ONE (16:40)
--- NOTE | 2022-02-20 18:02 | Anesthesiology Progress Note ---
Date of Service February 20, 2022 Anesthesia Post Procedure Vital Signs Vital Signs: Temp Pulse Pulse Resp BP Pulse Ox O2 Del Method 02/20/22 17:45 36.6 C 65 20 156/82 H 95 Room Air 02/20/22 17:25 73 20 159/70 H 98 Oxymask 02/20/22 17:35 72 17 170/72 H 96 Oxymask 02/20/22 17:15 36.7 C 78 14 170/72 H 96 Oxymask 02/20/22 12:33 37 C 62 18 159/73 H 97 Room Air O2 Flow Rate 02/20/22 17:45 02/20/22 17:25 6 02/20/22 17:35 3 02/20/22 17:15 12 02/20/22 12:33 Transfer of Care Handoff Completed per policy Notes Mental Status: alert / awake / arousable Patient Amnestic to Procedure: Yes Nausea / Vomiting: adequately controlled Pain: adequately controlled Airway Patency, RR, SpO2: stable & adequate BP & HR: stable & adequate Hydration State: stable & adequate Anesthetic Complications: no major complications apparent
[2022-02-20] MEDS ORDERED: traMADol HCL 50 MG TABLET PO PRN (18:15)
[2022-02-20] MEDS: SODIUM CHLORIDE 0.9% 1000ML 1,000 ML IV SCH (18:37)
[2022-02-20] MEDS: CIPROFLOXACIN / D5W 400 MG/200 ML BAG IV SCH (20:17)
[2022-02-21] MEDS: SODIUM CHLORIDE 0.9% 1000ML 1,000 ML IV SCH (06:00)
[2022-02-21] MEDS: CIPROFLOXACIN / D5W 400 MG/200 ML BAG IV SCH (06:01)
[2022-02-21] MEDS ORDERED: ACETAMINOPHEN 500 MG TAB ONE (07:50)
--- NOTE | 2022-02-21 08:16 | Urology Progress Note ---
Date of Service February 21, 2022 Assessment & Plan (1) Benign localized prostatic hyperplasia with lower urinary tract symptoms (LUTS): Plan: Recovery very much on pace from his TURP yesterday Plan for voiding trial this morning and discharge home Admission and Anticipated Discharge Date Admission Date: February 20, 2022 Subjective No issues overnight Urine clear Plan for voiding trial this morning discharge home Results & Data ([facility]) Vital Signs (Past 12 Hours) Vital Signs Temp Pulse Resp BP Pulse Ox O2 Del Method 02/21/22 07:41 36.8 C 50 L 16 166/75 H 96 Room Air 02/21/22 02:45 36.7 C 62 18 157/71 H 94 Room Air 02/20/22 21:26 36.8 C 73 17 166/72 H 94 Room Air 02/20/22 20:22 36.8 C 62 18 158/69 H 96 Room Air PG Care Time/CCT Total # of Minutes Spent Total Time Spent with Patient: Total time spent is greater than 50% in coordination of care (as documented) at patient's floor/unit and/or counseling patient: Coding Level of Care Code None Diagnoses Benign localized prostatic hyperplasia with lower urinary tract symptoms (LUTS) N40.1
[2022-02-21] MEDS ORDERED: PANTOprazole 40 MG TAB PO SCH (09:00)
[2022-02-21] MEDS ORDERED: amLODIPine BESYLATE 5 MG TAB PO SCH (09:00)
[2022-02-21] MEDS ORDERED: ATORVASTATIN 40 MG TAB PO SCH (09:00)
[2022-02-21] MEDS ORDERED: ACETAMINOPHEN 500 MG TAB PO SCH (09:00)
--- NOTE | 2022-02-21 11:39 | Discharge Summary ---
Date of Service February 21, 2022 Admission HPI Per Admitting Provider Patient with BPH with lower urinary tract symptoms here for TURP. Admission Exam Per Admitting Provider Physical Exam Constitutional well developed and well nourished Neck neck nontender Respiratory normal respiratory effort; no respiratory distress and does not use accessory muscles Cardiovascular Rate/Rhythm: regular rate Vessels: radial pulses present Extremities: no edema Gastrointestinal (Abdomen) Inspection/Auscultation: abdomen normal to inspection Percussion/Palpation: abdomen soft; abdomen nontender and no guarding Musculoskeletal Head/Neck/Chest: normocephalic and head atraumatic Extremities: extremities normal to inspection Skin no rashes and no lesions Trauma: no evidence of skin trauma Neurologic awake; not obtunded Speech / Cognition: normal speech Motor/Sensory: no tremor Psychiatric Orientation: alert and oriented x 3 Genitourinary no CVA tenderness Lymphatic no lymphadenopathy Principal Diagnosis BPH Discharge Exam Constitutional well developed and well nourished; no acute distress Respiratory normal respiratory effort; no respiratory distress and no labored breathing Gastrointestinal (Abdomen) Inspection/Auscultation: abdomen normal to inspection; abdomen not distended Musculoskeletal Head/Neck/Chest: normocephalic and head atraumatic Psychiatric Orientation: alert and oriented x 3 Discharge Data Allergies Allergy/AdvReac Type Severity Reaction Status Date / Time No Known Allergies Allergy . 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 (LUTS): Recovery very much on pace from his TURP yesterday Plan for voiding trial this morning and discharge home Patient voided after catheter removal He is ready for discharge Orders placed Expected clinical course reviewed, all questions answered Total Time Total Time Spent Total Time Spent (In Minutes): 29 Discharge Plan Discharge Items Patient Disposition: Home - Self-Care Reason For Visit: BPH Discharge Diagnosis: BPH Activity: Per Instructions section Lifting: No more than 25 pounds Bathing: No limitations Sexual Activity: Wait until after follow-up appointment Exercise/Sports: Wait until after follow-up appointment Driving/Machine Use: Resume 1 day after discharge Non-emergency contact: Surgeon and Urologist Call non-emergency contact if: your pain is not controlled, your pain is worsening, you have a fever and your temperature is above 101 Follow-up/Referrals: Jay Chamberlain DO [Primary Care Provider] - Diet: Regular Addtl Attending Provider Instructions: Please take all medications as prescribed and keep all follow-ups as scheduled. Please call our office at [phone] with any questions, concerns or need to reschedule appointments for any reason. We are happy to assist you. Tips for your recovery at home: Dont be alarmed by brownish or reddish blood or clots in your urine. This is a result of the procedure. This may occur off and on for weeks to months after the procedure but should continue to improve. Drink plenty of fluids during the day (enough to keep your urine very light colored). This will help keep a healthy flow of urine. Do not lift >25 lbs until your followup Avoid constipation. Please use a stool softener (Colace) for the first two weeks after your procedure Be sure to finish the antibiotics as prescribed. If you go home with a catheter, please wash tubing where it enters your body twice daily with mild soap (Dove or Dial). Once your catheter is removed, expect some blood in your urine and some burning when you urinate. You should have an appointment to have this removed, if you do not please call our office to arrange. Pending Studies at Discharge: Yes Studies:: Pathology Stand-Alone Forms: [email or web address], Smoking Cessation Medications and DC Order Prescriptions: New ciprofloxacin HCl 500 mg tablet 500 mg PO BID Qty: 6 0RF Continued acetaminophen [Tylenol Extra Strength] 500 mg Tablet 1,000 mg PO QAM amlodipine 5 mg Tablet 5 mg PO QAM atorvastatin 40 mg Tablet 40 mg PO QAM Qty: 30 0RF aspirin 81 mg Tablet,Delayed Release (Dr/Ec) 81 mg PO QAM Qty: 30 0RF tadalafil 5 mg tablet 5 mg PO UD PRN (Reason: sexual dysfunction) omeprazole 1 tab PO Q2D ferrous sulfate [Iron (ferrous sulfate)] 325 mg (65 mg iron) Tablet 325 mg PO Q OTHER DAY Discontinued tamsulosin 0.4 mg capsule 0.4 mg PO HS Qty: 90 3RF finasteride 5 mg tablet 5 mg PO HS Discharge Orders: Discharge Order (Routine); Ordered 02/21/22 Ordered By: Lore De La Vega Admission Data Admit Date/Time: 02/20/22 17:13 Attending Provider: Devon Batres Admit Provider: Devon Batres Primary Care Provider: Jay Chamberlain Coding Level of Care Code D/C DAY MANAGEMENT <30 MINS Diagnoses Benign localized prostatic hyperplasia with lower urinary tract symptoms (LUTS) N40.1
--- NOTE | 2022-02-21 17:43 | Operative Report ---
PG Post Operative Report Pre & Post Diagnosis Operation Date: 02/20/22 14:50 Pre-Op Diagnosis: Benign Localized prostatic Hyperplasia Post-Op Diagnosis: Benign Localized prostatic Hyperplasia I identified the patient and participated in the time-out.: Yes Procedure Operation Date: 02/20/22 14:50 Actual Procedures p Transurethral Resection Prostate(Not Applicable) - Devon Batres MD Surgeon Devon Batres MD Director Of [employer]iances none Estimated Blood Loss 0 Findings Consistent with Post-Op Diagnosis Specimens none Description of Procedure The patient was identified in the preoperative holding area, appropriate informed consents were reviewed and completed and the patient was transferred to the operative suite. Upon arrival, appropriate antibiotics and anesthesia were administered and the patient was placed in dorsal lithotomy position and prepped and draped in sterile fashion. To begin the case to pass a 26 Czech resectoscope with 30 degree lens and visual obturator. Inspection revealed a healthy-appearing urethra and a moderately enlarged prostate with lateral lobe hypertrophy and a slightly elevated bladder neck. Inspection of bladder revealed moderate trabeculation with ureteral orifices in orthotopic position. I carefully incised the bladder neck utilizing a button electrode and resected the intervening segment of tissue. This immediately improved the appearance of the bladder neck and prostate. I did proceed to resect the left and right lateral lobes as there was still some residual obstruction. There were numerous prostatic calcifications within these lobes. I irrigated all the small stones out of the bladder. After obtaining meticulous hemostasis, I placed a 22 Czech catheter without difficulty and concluded the case. He was reversed of anesthesia and taken to the recovery room in stable condition. There were no complications. I attest to the content of the Intraoperative Record and any orders documented therein. Any exceptions are noted below.
== END 2022-02-21 12:25 | disposition home or self-care (01) ==
LOC: 3E 12:02 → ASU 12:02